=== PATIENT | male | born 1955 | race Caucasian/White ===

== ENCOUNTER → 2020-08-06 11:06 | Outpatient (CLI) | payer MEDICARE, SELFPAY ==
[2020-08-06] MEDS: COVID-19 VACC #1, MRNA(MOD) 100 MCG/0.5 ML VIAL IM (11:24)
== END ==
PROVIDERS: Visit Provider Internal Medicine
DX: Z23 Encounter for immunization (principal)
CPT/HCPCS: 0011A; 91301

== ENCOUNTER → 2020-09-03 11:10 | Outpatient (CLI) | payer MEDICARE, SELFPAY ==
[2020-09-03] MEDS: COVID-19 VACC #2, MRNA(MOD) 100 MCG/0.5 ML VIAL IM (11:18)
== END ==
PROVIDERS: Visit Provider Internal Medicine
DX: Z23 Encounter for immunization (principal)
CPT/HCPCS: 0012A; 91301

== ENCOUNTER 2023-01-25 14:26 | Emergency (ER) | payer MEDICARE, SELFPAY ==
[2023-01-25 14:31] VITALS: BP 117/75; PULSE 117; RESP 18; TEMP 36.8; O2SAT 99; BMI 21.2
[2023-01-25 15:11] LABS: Add Manual Diff / Slide Review NO; Basophils Absolute Auto 100 /uL (0-100); Basophils Percent Auto 1.5 % (0-2); Eosinophils Absolute Auto 100 /uL (0-450); Eosinophils Percent Auto 1.6 % (2-4); Hematocrit 39.2 % (41-53); Hemoglobin 13.1 g/dL (13.5-17.5); Lymphocytes Absolute Auto 3000 /uL (1100-4500); Lymphocytes Percent Auto 39.5 % (25-40); Mean Corpuscular HGB Conc 33.4 % (30-36); Mean Corpuscular Hemoglobin 28.8 PG (26-34); Mean Corpuscular Volume 86.4 fL (80-100); Monocytes Absolute Auto 400 /uL (0-900); Monocytes Percent Auto 5.6 % (3-14); Neutrophils Absolute Auto 3900 /uL (1500-7000); Neutrophils Percent Auto 51.8 % (50-75); Platelet Count 351 X10^3/uL (150-400); Red Blood Cell Count 4.54 X10^6/uL (4.5-5.9); Red Cell Distribution Width 16.3 % (11.6-14.8); White Blood Cell Count 7.5 X10^3/uL (4.5-11.0)
[2023-01-25 15:24] LABS: Alanine Aminotransferase 24 IU/L (<50); Albumin 4.5 g/dL (3.5-5.0); Albumin Globulin Ratio 1.3 (1.0-2.8); Alkaline Phosphatase 80 U/L (38-126); Aspartate Aminotransferase 33 IU/L (17-59); BUN Creatinine Ratio 16.7 (6-22); Bilirubin Total 0.3 mg/dL (0.2-1.3); Blood Urea Nitrogen 11 mg/dL (9-20); Calcium 9.6 mg/dL (8.4-10.2); Carbon Dioxide 23 mmol/L (22-32); Chloride 102 mmol/L (98-107); Estimated Glomerular Filt Rate > 60 mL/min (>60); Globulin 3.5 g/dL (1.7-4.1); Glucose 90 mg/dL (80-110); HEMOLYSIS < 15 (0-50); Lipase 128 U/L (23-300); Potassium 3.8 mmol/L (3.4-5.1); Sodium 138 mmol/L (137-145)
[2023-01-25 17:47] VITALS: BP 134/75; PULSE 99; O2SAT 99
[2023-01-25 19:09] VITALS: BP 161/95; PULSE 86; O2SAT 99
--- NOTE | 2023-01-25 20:13 | ED_ITS ---
HPI - Abdominal Pain General Chief Complaint: Abdominal Pain Stated Complaint: bad hernia Time Seen by Provider: 01/25/23 20:09 Source: patient Mode of arrival: Ambulatory History of Present Illness HPI narrative: Patient 67-year-old male with chronic ongoing back pain presents today with right inguinal groin pain. He reports that he is had a hernia possibly for the last 7 months however over last 4 days he is having increasing pain. Difficult bowel movement no nausea or vomiting no abdominal pain. No fever or chills. No painful frequent urination. Related Data Previous Rx's Medication Instructions Recorded hydrocodone 5 mg-acetaminophen 325 1 tab PO Q6H PRN pain #10 tabs 01/25/23 mg tablet Allergies Allergy/AdvReac Type Severity Reaction Status Date / Time codeine Allergy Cramping Verified 01/25/23 14:31 of the Muscles Review of Systems Review of Systems ROS Unobtainable: All systems reviewed & are unremarkable except as noted in HPI and below Patient History Social History Smoking Status: Current every day smoker Smoking Status: Current every day smoker tobacco type: cigarettes alcohol intake frequency: 3 or more drinks per day Substance Use Type: marijuana Exam Initial Vital Signs Initial Vital Signs: Vital Signs Temperature 98.3 F 01/25/23 14:31 Pulse Rate 117 H 01/25/23 14:31 Respiratory Rate 18 01/25/23 14:31 Blood Pressure 117/75 01/25/23 14:31 Pulse Oximetry 99 01/25/23 14:31 Oxygen Delivery Method Room Air 01/25/23 14:31 GENERAL: Alert pleasant 67-year-old male HEENT: Head atraumatic,EOMI, pupils reactive, face symmetric, [moist] mucous membranes CARDIOVASCULAR: Regular rate and rhythm without murmurs, rubs or gallops. RESPIRATORY: Breath sounds equal bilaterally, no wheezes rales or rhonchi. ABDOMEN: Soft, nontender. Normoactive bowel sounds all 4 quadrants. No guarding or rebound. : Large right inguinal hernia. Soft was able to reduce some. EXTREMITIES: Normal range of motion, no clubbing or edema. Neurovascularly intact NEUROLOGICAL: Alert and oriented x4. SKIN: Warm, dry, no laceration, no petechiae, no rashes or lesions. Course Orders Ordered: ED Orders 01/25/23 20:43 US scrotum Stat Discontinued Medications Hydrocodone Bitart/Acetaminophen (Hydrocodone/Acet 5/325 Prepack) 1 bottle MISC SEEINSTR ONE Stop: 01/25/23 22:48 Last Admin: 01/25/23 22:54 Dose: 1 bottle Documented By: ADRIANO Ketorolac Tromethamine (Ketorolac 30 Mg/Ml Vial) 15 mg IV NOW ONE Stop: 01/25/23 20:51 Last Admin: 01/25/23 21:01 Dose: 15 mg Documented By: ADRIANO Morphine Sulfate (Morphine 2 Mg/Ml Inj) 2 mg IV NOW ONE Stop: 01/25/23 20:20 Last Admin: 01/25/23 20:24 Dose: 2 mg Documented By: CAITIE Ondansetron HCl (Ondansetron 4 Mg Odt) 4 mg PO NOW PRN PRN Reason: Nausea And Vomiting Ondansetron HCl (Ondansetron 4 Mg/2 Ml Inj) 4 mg IV NOW PRN PRN Reason: Nausea And Vomiting Last Admin: 01/25/23 20:24 Dose: 4 mg Documented By: CAITIE Vital Signs Vital signs: Vital Signs - 8 hr 01/25/23 21:47 01/25/23 22:19 01/25/23 22:57 Temperature 97.7 F 98.1 F Pulse Rate 80 74 Respiratory Rate 16 16 16 Blood Pressure 144/88 H 155/81 H 164/93 H Pulse Oximetry 95 99 Oxygen Delivery Method Room Air Room Air Room Air MDM - Abdominal Pain Lab Data 01/25/23 14:45 01/25/23 14:45 Labs: Lab Results 01/25/23 01/25/23 Range/Units 14:45 14:45 WBC 7.5 (4.5-11.0) X10^3/uL RBC 4.54 (4.5-5.9) X10^6/uL Hgb 13.1 L (13.5-17.5) g/dL Hct 39.2 L (41-53) % MCV 86.4 (80-100) fL MCH 28.8 (26-34) PG MCHC 33.4 (30-36) % RDW 16.3 H (11.6-14.8) % Plt Count 351 (150-400) X10^3/uL Neut % (Auto) 51.8 (50-75) % Lymph % (Auto) 39.5 (25-40) % [place] % (Auto) 5.6 (3-14) % Eos % (Auto) 1.6 L (2-4) % Baso % (Auto) 1.5 (0-2) % Neut # (Auto) 3900 (0714-4666) /uL Lymph # (Auto) 3000 (0613-7223) /uL [place] # (Auto) 400 (0-900) /uL Eos # (Auto) 100 (0-450) /uL Baso # (Auto) 100 (0-100) /uL Sodium 138 (137-145) mmol/L Potassium 3.8 (3.4-5.1) mmol/L Chloride 102 (98-107) mmol/L Carbon Dioxide 23 (22-32) mmol/L BUN 11 (9-20) mg/dL Creatinine 0.66 (0.66-1.25) mg/dL Estimated GFR > 60 (>60) mL/min BUN/Creatinine Ratio 16.7 (6-22) Glucose 90 (80-110) mg/dL Calcium 9.6 (8.4-10.2) mg/dL Total Bilirubin 0.3 (0.2-1.3) mg/dL AST 33 (17-59) IU/L ALT 24 (<50) IU/L Alkaline Phosphatase 80 (38-126) U/L Total Protein 8.0 (6.3-8.2) g/dL Albumin 4.5 (3.5-5.0) g/dL Globulin 3.5 (1.7-4.1) g/dL Albumin/Globulin Ratio 1.3 (1.0-2.8) Lipase 128 (23-300) U/L Imaging Data US scrotum: Radiologist's Impression: PROCEDURE:? US SCROTUM ? INDICATIONS:? RIGHT SCROTAL HERNIA ? TECHNIQUE:? Real-time scanning was performed of the scrotum and testicles, with image documentation.? Color and pulse Doppler interrogation was performed of both testicles.? ? COMPARISON:? [facility], CT, CT ABDOMEN PELVIS WITH CONTRAST, 01/20/2023, 22:41. ? FINDINGS:? ? Right:? Testicle measures 2.7 x 1.4 x 4.3 cm and appears homogenous in echotexture.? Epididymis is normal in overall size and morphology.? No hydrocele or varicoceles.? Overlying scrotal skin is normal in thickness.? ? There is a large right inguinal hernia containing loops of small bowel redemonstrated.? This measures approximately 8.6 x 6.7 x 8.6 cm. ? Left:? Testicle measures 3.9 x 2.4 x 3.5 cm and appears homogeneous in echotexture.? Epididymis is normal in overall size and morphology.? No hydrocele or varicoceles.? Overlying scrotal skin is normal in thickness.? ? Doppler:? Color and pulse Doppler demonstrate patent arterial flow in both testicles.? ? IMPRESSION:? ? 1. Large bowel-containing right inguinal hernia redemonstrated as seen on the prior CT. ? 2. No evidence of testicular torsion. ? ? Dictated by: Liborio Swain M.D. on 01/25/2023 at 22:49 ? ? ECG Data Interpretation: Normal sinus rhythm rate 98 AK interval 144 QRS [address] changes no T- wave inversions MDM Narrative Medical decision making narrative: Patient 67-year-old male presents today with chronic ongoing right inguinal hernia. It is likely chronic but increasing pain over last couple of days. I was able to reduce it some however not completely. Ultrasound confirms no testicular torsion or other etiology. Discussed that patient will likely need definitive surgery for complete reduction. No evidence of incarceration today. Blood work has been reviewed and is reassuring without clinical significant abnormalities. Discharge Plan Departure Patient Disposition: Home Clinical Impression: Hernia, inguinal, right Instructions: Groin Hernia -- Adult Activity Restrictions/Additional Instructions: *You have been diagnosed with right inguinal hernia *What to do: At this time your hernia will likely come out any time you strain cough sneeze laugh etc. you will ultimately need surgery for repair. *Continue to take medications as directed [place] 1 tablet every 6 hours if needed for severe pain *Follow up with your primary care provider in 2-3 days or call [phone] Tomorrow call surgery to schedule follow-up appointment *Return to ER if you should have increasing pain, hardness, change in color, fever, change in bowel habits or any new, worsening or concerning symptoms CONTROLLED SUBSTANCE DISCHARGE (Narcotoic/benzodiazepine/Flexeril/Phenergan) 1. You have been prescribed narcotic medications, it does have acetaminop hen/Tylenol/paracetamol in it, DO NOT TAKE MORE THAN 4,00mg in 24 hours of Tylenol. TRAMADOL DOES NOT CONTAIN TYLENOL 2. Please understand that we cannot provide further refills of narcotics, chemo odiazepines or controlled substances through the ED and her pain management will need to be through your provider. 3. While on these medications you cannot drive or operate heavy machinery. 4. You cannot sign legal documents or perform any duties such as this. 5. As long as you're taking opiate pain medications he should also be taking a stool softener such as Colace, Dulcolax, MiraLAX or prune juice, to help avoid constipation. Prescriptions: New hydrocodone-acetaminophen 5-325 mg tablet 1 tab PO Q6H PRN (Reason: pain) Qty: 10 0RF Referrals: [facility] [Provider Group] Miscellaneous,[facility] [Primary Care Provider] - Stand Alone Forms: Patient Portal/API
[2023-01-25] MEDS: ONDANSETRON 4 MG/2 ML INJ IV (20:24)
[2023-01-25] MEDS: MORPHINE 2 MG/ML INJ IV (20:24)
--- NOTE | 2023-01-25 20:43 | DI.US.S_ITS ---
PROCEDURE: US SCROTUM INDICATIONS: RIGHT SCROTAL HERNIA TECHNIQUE: Real-time scanning was performed of the scrotum and testicles, with image documentation. Color and pulse Doppler interrogation was performed of both testicles. COMPARISON: [facility], CT, CT ABDOMEN PELVIS WITH CONTRAST, 01/20/2023, 22:41. FINDINGS: Right: Testicle measures 2.7 x 1.4 x 4.3 cm and appears homogenous in echotexture. Epididymis is normal in overall size and morphology. No hydrocele or varicoceles. Overlying scrotal skin is normal in thickness. There is a large right inguinal hernia containing loops of small bowel redemonstrated. This measures approximately 8.6 x 6.7 x 8.6 cm. Left: Testicle measures 3.9 x 2.4 x 3.5 cm and appears homogeneous in echotexture. Epididymis is normal in overall size and morphology. No hydrocele or varicoceles. Overlying scrotal skin is normal in thickness. Doppler: Color and pulse Doppler demonstrate patent arterial flow in both testicles. IMPRESSION: 1. Large bowel-containing right inguinal hernia redemonstrated as seen on the prior CT. 2. No evidence of testicular torsion. Dictated by: Liborio Swain M.D. on 01/25/2023 at 22:49 Approved by: Liborio Swain M.D. on 01/25/2023 at 22:52
[2023-01-25] MEDS: KETOROLAC 30 MG/ML VIAL 15 MG IV (21:01)
[2023-01-25 21:47] VITALS: BP 144/88; PULSE 80; RESP 16; TEMP 36.5; O2SAT 95
[2023-01-25 22:19] VITALS: BP 155/81; RESP 16; TEMP 36.7
[2023-01-25] MEDS: HYDROCODONE/ACET 5/325 PREPACK 1 BOTTLE MISC (22:54)
[2023-01-25 22:57] VITALS: BP 164/93; PULSE 74; RESP 16; O2SAT 99
== END 2023-01-25 23:05 | disposition home or self-care (01) ==
PROVIDERS: Emergency Medicine; Emergency Provider Emergency Medicine
DX: K40.90 Unilateral inguinal hernia, without obstruction or gangrene, not specified as recurrent (principal); R03.0 Elevated blood-pressure reading, without diagnosis of hypertension
CPT/HCPCS: 76870; 80053; 83690; 85025; 93005; 93010; 93975; 96374; 96375; 99283; 99284; J1885; J2270; J2405

== ENCOUNTER 2023-02-08 15:44 | Observation (INO) | payer MEDICARE, SELFPAY ==
[2023-02-08] VITALS (43 sets, daily range): BP systolic 139–226; BP diastolic 85–118; PULSE 61–86; RESP 18–31; TEMP 36.3–36.5; O2SAT 91–100; BMI 19.5
[2023-02-08] MEDS: ONDANSETRON 4 MG/2 ML INJ IV (16:03)
[2023-02-08] MEDS: HYDROMORPHONE 0.5 MG INJ IV ×3 (16:03→20:46)
[2023-02-08 16:27] LABS: Alanine Aminotransferase 25 IU/L (<50); Albumin 4.5 g/dL (3.5-5.0); Albumin Globulin Ratio 1.1 (1.0-2.8); Alkaline Phosphatase 101 U/L (38-126); Aspartate Aminotransferase 29 IU/L (17-59); BUN Creatinine Ratio 27.9 (6-22); Bilirubin Total 0.4 mg/dL (0.2-1.3); Blood Urea Nitrogen 17 mg/dL (9-20); Calcium 10.3 mg/dL (8.4-10.2); Carbon Dioxide 27 mmol/L (22-32); Chloride 101 mmol/L (98-107); Estimated Glomerular Filt Rate > 60 mL/min (>60); Glucose 114 mg/dL (80-110); HEMOLYSIS < 15 (0-50); Lipase 125 U/L (23-300); Sodium 137 mmol/L (137-145); Total Protein 8.5 g/dL (6.3-8.2)
[2023-02-08 16:37] LABS: Add Manual Diff / Slide Review NO; Basophils Absolute Auto 100 /uL (0-100); Basophils Percent Auto 1.7 % (0-2); Eosinophils Absolute Auto 100 /uL (0-450); Eosinophils Percent Auto 1.5 % (2-4); Hematocrit 38.8 % (41-53); Hemoglobin 12.8 g/dL (13.5-17.5); Lymphocytes Absolute Auto 1900 /uL (1100-4500); Lymphocytes Percent Auto 33.2 % (25-40); Mean Corpuscular HGB Conc 33.1 % (30-36); Mean Corpuscular Hemoglobin 28.7 PG (26-34); Mean Corpuscular Volume 86.8 fL (80-100); Monocytes Absolute Auto 200 /uL (0-900); Monocytes Percent Auto 4.3 % (3-14); Neutrophils Absolute Auto 3500 /uL (1500-7000); Neutrophils Percent Auto 59.3 % (50-75); Platelet Count 257 X10^3/uL (150-400); Red Blood Cell Count 4.46 X10^6/uL (4.5-5.9); Red Cell Distribution Width 16.3 % (11.6-14.8); White Blood Cell Count 5.8 X10^3/uL (4.5-11.0)
--- NOTE | 2023-02-08 16:57 | PC.NURSE ---
Pt's stoma began leaking liquid stool. Gave pt partial bed bath, changed gown & brief. Pt complained of tenderness around stoma. Stoma bright red and edemetous with surrounding skin red and irritated.
--- NOTE | 2023-02-08 17:10 | PC.NURSE ---
Repeated stoma care.
--- NOTE | 2023-02-08 17:17 | DI.US.S_ITS ---
PROCEDURE: US SCROTUM INDICATIONS: WORSENING RIGHT GROIN HERNIA. SCROTAL PAIN. EVAL BOTH. TECHNIQUE: Real-time scanning was performed of the scrotum and testicles, with image documentation. Color and pulse Doppler interrogation was performed of both testicles. COMPARISON: , , US SCROTUM, 01/25/2023, 21:10. FINDINGS: Right: Testicle is normal in size at 3.8 x 2.3 x 3.6 cm, and homogenous in echotexture. Epididymis is normal in overall size and morphology. Tiny right hydrocele. No varicocele. There is a large fluid and bowel containing inguinal hernia medially displacing the right testicle. Overlying scrotal skin is normal in thickness. Left: Testicle is normal in size at 2.8 x 2.3 x 2.8 cm, and homogeneous in echotexture. 6 mm cyst in the left epididymal head. Epididymis is otherwise normal in overall size and morphology. No hydrocele or varicoceles. Overlying scrotal skin is normal in thickness. Doppler: Color and pulse Doppler demonstrate normal and symmetric arterial flow in both testicles. IMPRESSION: 1. Known large right inguinal hernia containing both fluid and bowel. 2. Normal appearance to the testicles. Dictated by: Mariela Denton M.D. on 02/08/2023 at 18:51 Approved by: Mariela Denton M.D. on 02/08/2023 at 18:54
--- NOTE | 2023-02-08 17:21 | PC.NURSE ---
Dr. Feliz made aware of pt's pain, BP, and reason for being here. Verbal order for pain meds and an US
[2023-02-08] MEDS: HYDROMORPHONE 1 MG INJ IV (17:22)
[2023-02-08] MEDS: SODIUM CHLORIDE 0.9% 1,000 ML 1000 ML IV (19:00)
--- NOTE | 2023-02-08 19:03 | ED.GENADULT ---
HPI - General Adult General Chief complaint: Abdominal Pain Stated complaint: Hernia pain Time Seen by Provider: 02/08/23 18:08 Source: patient Mode of arrival: Ambulatory History of Present Illness HPI narrative: 67-year-old gentleman who is had almost no interaction with medical providers to date. 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 Thorough workup at that time including CT scan and blood work did not indicate any obvious abnormalities, his right inguinal hernia was not incarcerated and he was referred to outpatient follow-up. He was seen by Dr. Gonzales, and certainly is actually scheduled as an outpatient on the . He comes into [facility] today with increased pain in the inguinal hernia no bowel movement for 4-5 days and not passing gas for the last 24 hours. Pain is not able to be controlled at home. He reports no fevers, cough, chills. He has not had any additional weight loss. He is had no chest pain or palpitations and does not complain of dyspnea Related Data Previous Rx's Medication Instructions Recorded hydrocodone 5 mg-acetaminophen 325 1 tab PO Q6H PRN pain #10 tabs 01/25/23 mg tablet Allergies Allergy/AdvReac Type Severity Reaction Status Date / Time codeine Allergy Cramping Verified 02/08/23 15:50 of the Muscles Review of Systems Review of Systems Narrative: Pertinent positive and negative findings as per HPI Patient History Social History Smoking Status: Current every day smoker Smoking Status: Current every day smoker tobacco type: cigarettes alcohol intake frequency: holidays/special occasions only Substance Use Type: marijuana Exam Initial Vital Signs Initial Vital Signs: Vital Signs Temperature 97.4 F L 02/08/23 15:45 Pulse Rate 66 02/08/23 15:45 Respiratory Rate 22 02/08/23 15:45 Blood Pressure 210/108 H 02/08/23 15:45 Pulse Oximetry 100 02/08/23 15:45 Oxygen Delivery Method Room Air 02/08/23 15:45 General: Chronically ill thin gentleman in obvious pain from the hernia but Able to give a complete and coherent history. HEENT: Moist mucous membranes, normal sclera with reactive pupils, Neck: No JVD, supple Respiratory: Lungs are clear to auscultation, no wheezing no rales no rhonchi. Full and symmetrical air movement Cardiac: Regular rate and rhythm no murmurs no bruits Abdomen: Soft, scaphoid, no bowel tones, Groin, he has a large right inguinal hernia tender to the touch non reducible Skin: Thin, no lower extremity edema Neurologic: Grossly neurologically intact with no obvious asymmetries or abnormalities Extremities: No trauma, well perfused Psych: Cooperative, appropriate insight and affect Procedures Procedural Sedation Time of procedure: 19:43 Consent signed: Yes Time out performed: Yes Indication: other (Hernia reduction) ASA Class: II Mallampati Airway Classification: Class II Time of Last PO Intake: 08:00 Preparation: trap puller applied, pulse oximeter, capnometry used, supplemental O2 applied, suction/airway equipment at bedside and IV secured IV Propofol dose (mg): 60 Intraservice time/total sedation time (min): 10 ED Sedation Level: Moderate (Concious) Patient Tolerated Procedure: Well Complications: none Additional Comments: Right inguinal hernia was reduced at bedside by Dr. Da Silva, general surgeon Course Orders Ordered: ED Orders 02/08/23 15:59 EKG-12 Lead Stat 02/08/23 16:00 Comprehensive Metabolic Panel Stat Lipase Stat 02/08/23 16:01 Complete Blood Count AUTO DIFF Stat 02/08/23 17:17 US scrotum Stat Hydrocodone Bitart/Acetaminophen (Hydrocodone/Acet 5/325 Tablet) 1 tab PO Q4H PRN PRN Reason: Pain, Moderate (4-6) Hydrocodone Bitart/Acetaminophen (Hydrocodone/Acet 5/325 Tablet) 2 tab PO Q4H PRN PRN Reason: Pain, Severe (7-10) Hydromorphone HCl (Hydromorphone 0.5 Mg Inj) 0.5 mg IV Q15MIN PRN PRN Reason: Pain, Last Admin: 02/08/23 19:01 Dose: 0.5 mg Documented By: PHI Hydromorphone HCl (Hydromorphone 0.5 Mg Inj) 0.5 mg IV Q2H PRN PRN Reason: Pain, Severe (7-10) Lactated Ringer's (Lactated Ringers) 1,000 mls @ 100 mls/hr IV CONT MONTEZ Ibuprofen (Ibuprofen 600 Mg Tablet) 600 mg PO Q6H PRN PRN Reason: Fever/Mild Pain (1-3) Naloxone HCl (Naloxone 0.4 Mg/Ml Vial) 0.2 mg IV Q2MIN PRN PRN Reason: Opiate Reversal Ondansetron HCl (Ondansetron 4 Mg/2 Ml Inj) 4 mg IV NOW PRN PRN Reason: Nausea And Vomiting Last Admin: 02/08/23 16:03 Dose: 4 mg Documented By: CAITIE Ondansetron HCl (Ondansetron 4 Mg/2 Ml Inj) 4 mg IV Q8HR PRN PRN Reason: Nausea And Vomiting Discontinued Medications Hydromorphone HCl (Hydromorphone 0.5 Mg Inj) 0.5 mg IV NOW ONE Stop: 02/08/23 16:00 Last Admin: 02/08/23 16:03 Dose: 0.5 mg Documented By: CAITIE Hydromorphone HCl (Hydromorphone 1 Mg Inj) 1 mg IV NOW ONE Stop: 02/08/23 17:18 Last Admin: 02/08/23 17:22 Dose: 1 mg Documented By: PHI Sodium Chloride (Normal Saline 0.9%) 1,000 mls @ 1,000 mls/hr IV BOLUS ONE Stop: 02/08/23 19:52 Last Admin: 02/08/23 19:00 Dose: 1,000 mls/hr Documented By: PHI Ondansetron HCl (Ondansetron 4 Mg/2 Ml Inj) 4 mg IV NOW ONE Stop: 02/08/23 18:54 Last Admin: 02/08/23 20:13 Dose: Not Given Documented By: FORTINO Propofol (Propofol 200 Mg/20 Ml Vial) 200 mg IV NOW ONE Stop: 02/08/23 19:05 Last Admin: 02/08/23 19:45 Dose: 60 mg Documented By: FORTINO Vital Signs Vital signs: Vital Signs - 8 hr 02/08/23 15:45 02/08/23 16:37 02/08/23 16:45 Temperature 97.4 F L Pulse Rate 66 63 63 Respiratory Rate 22 Blood Pressure 210/108 H Pulse Oximetry 100 96 96 Oxygen Delivery Method Room Air Oxygen Flow Rate 02/08/23 17:00 02/08/23 17:25 02/08/23 17:25 Temperature Pulse Rate 64 64 Respiratory Rate Blood Pressure 194/93 H Pulse Oximetry 96 99 Oxygen Delivery Method Oxygen Flow Rate 02/08/23 17:30 02/08/23 17:45 02/08/23 18:18 Temperature Pulse Rate 71 83 77 Respiratory Rate Blood Pressure Pulse Oximetry 91 95 99 Oxygen Delivery Method Oxygen Flow Rate 02/08/23 18:30 02/08/23 18:45 02/08/23 19:00 Temperature Pulse Rate 71 71 67 Respiratory Rate Blood Pressure Pulse Oximetry 97 98 98 Oxygen Delivery Method Room Air Oxygen Flow Rate 02/08/23 19:03 02/08/23 19:03 02/08/23 19:15 Temperature Pulse Rate 68 71 Respiratory Rate Blood Pressure 204/111 H Pulse Oximetry 96 98 Oxygen Delivery Method Room Air Oxygen Flow Rate 02/08/23 19:40 02/08/23 19:40 02/08/23 16:40 Temperature Pulse Rate 71 62 Respiratory Rate 31 H Blood Pressure 226/118 H Pulse Oximetry 97 Oxygen Delivery Method Oxygen Flow Rate 02/08/23 16:50 02/08/23 16:55 02/08/23 17:05 Temperature Pulse Rate 63 61 63 Respiratory Rate Blood Pressure Pulse Oximetry 96 97 98 Oxygen Delivery Method Oxygen Flow Rate 02/08/23 17:35 02/08/23 17:40 02/08/23 17:50 Temperature Pulse Rate 70 72 77 Respiratory Rate Blood Pressure Pulse Oximetry 95 96 97 Oxygen Delivery Method Oxygen Flow Rate 02/08/23 17:55 02/08/23 18:20 02/08/23 18:25 Temperature Pulse Rate 72 68 70 Respiratory Rate Blood Pressure Pulse Oximetry 93 97 98 Oxygen Delivery Method Oxygen Flow Rate 02/08/23 18:35 02/08/23 18:40 02/08/23 18:50 Temperature Pulse Rate 73 69 76 Respiratory Rate Blood Pressure Pulse Oximetry 96 98 99 Oxygen Delivery Method Oxygen Flow Rate 02/08/23 18:55 02/08/23 19:05 02/08/23 19:20 Temperature Pulse Rate 70 73 85 Respiratory Rate Blood Pressure Pulse Oximetry 98 96 99 Oxygen Delivery Method Oxygen Flow Rate 02/08/23 19:25 02/08/23 19:45 02/08/23 19:47 Temperature Pulse Rate 67 86 84 Respiratory Rate 23 22 Blood Pressure Pulse Oximetry 98 93 99 Oxygen Delivery Method Nasal Cannula Oxygen Flow Rate 2 2 02/08/23 19:47 02/08/23 19:50 02/08/23 19:50 Temperature Pulse Rate 83 Respiratory Rate 20 Blood Pressure 186/106 H 177/104 H Pulse Oximetry 100 Oxygen Delivery Method Room Air Oxygen Flow Rate Medical Decision Making Lab Data 02/08/23 16:01 02/08/23 16:00 Labs: Lab Results 02/08/23 02/08/23 Range/Units 16:00 16:01 WBC 5.8 (4.5-11.0) X10^3/uL RBC 4.46 L (4.5-5.9) X10^6/uL Hgb 12.8 L (13.5-17.5) g/dL Hct 38.8 L (41-53) % MCV 86.8 (80-100) fL MCH 28.7 (26-34) PG MCHC 33.1 (30-36) % RDW 16.3 H (11.6-14.8) % Plt Count 257 (150-400) X10^3/uL Neut % (Auto) 59.3 (50-75) % Lymph % (Auto) 33.2 (25-40) % [place] % (Auto) 4.3 (3-14) % Eos % (Auto) 1.5 L (2-4) % Baso % (Auto) 1.7 (0-2) % Neut # (Auto) 3500 (6477-9850) /uL Lymph # (Auto) 1900 (2024-5510) /uL [place] # (Auto) 200 (0-900) /uL Eos # (Auto) 100 (0-450) /uL Baso # (Auto) 100 (0-100) /uL Sodium 137 (137-145) mmol/L Potassium 4.0 (3.4-5.1) mmol/L Chloride 101 (98-107) mmol/L Carbon Dioxide 27 (22-32) mmol/L BUN 17 (9-20) mg/dL Creatinine 0.61 L (0.66-1.25) mg/dL Estimated GFR > 60 (>60) mL/min BUN/Creatinine Ratio 27.9 H (6-22) Glucose 114 H (80-110) mg/dL Calcium 10.3 H (8.4-10.2) mg/dL Total Bilirubin 0.4 (0.2-1.3) mg/dL AST 29 (17-59) IU/L ALT 25 (<50) IU/L Alkaline Phosphatase 101 (38-126) U/L Total Protein 8.5 H (6.3-8.2) g/dL Albumin 4.5 (3.5-5.0) g/dL Globulin 4.0 (1.7-4.1) g/dL Albumin/Globulin Ratio 1.1 (1.0-2.8) Lipase 125 (23-300) U/L Urine Dip Bedside Urine Glucose Negative Bedside Urine Bilirubin - Negative Bedside Urine Ketone - Negative Urine Specific [place] 1.02 Bedside Urine Occult Blood - Negative Bedside Urine pH 6 Bedside Urine Protein - Negative Bedside Urine Urobilinogen - Negative Bedside Urine Nitrite - Negative Bedside Urine Leukocytes - Negative Esterase Point of care testing: Urine Dip Bedside Urine Glucose Negative Bedside Urine Bilirubin - Negative Bedside Urine Ketone - Negative Urine Specific [place] 1.02 Bedside Urine Occult Blood - Negative Bedside Urine pH 6 Bedside Urine Protein - Negative Bedside Urine Urobilinogen - Negative Bedside Urine Nitrite - Negative Bedside Urine Leukocytes - Negative Esterase MDM Narrative Medical decision making narrative: CC: Incarcerated right inguinal hernia Complicating co-morbidities: Minimal interaction with medical community until January 20 of this year. No primary care Data collected from: patient, Medical records reviewed: ER notes from January 20 [facility] are reviewed, surgery notes from [facility] in anticipation of hernia surgery for February 11 2 reviewed Differential considered: Incarcerated hernia, gangrenous bowel, bowel obstruction secondary to both Exam documented above, pertinent findings include: Severe pain with tense right inguinal hernia. Quite thin, hypoactive to completely absent bowel tones Lab Test results independently reviewed as above. Pertinent findings: White blood cell count is unremarkable, mild anemia at 12.8 and 38.8 Chemistries show normal renal function. Remainder of chemistries are relatively unremarkable Consultations:7pm Dr. Da Silva, general surgery. He will evaluate the patient in the emergency department. We will try conscious sedation with propofol to see if we can reduce it in the department. Treatments: Sedation with reduction of hernia at bedside. Dilaudid for pain control Re-evaluations: Post sedation patient is doing well. Agrees to hospitalization tonight with surgical repair of his hernia tomorrow. Discussion: 67-year-old gentleman was not seen a doctor until January 20 of this year. He has a right inguinal hernia was incarcerated without gangrene reduced at bedside with conscious sedation. Still significantly tender. He is admitted for surgical repair. Additional problems include 25 lb weight loss that may actually be related to the pain from his hernia, symptoms started earlier in the summer and he was fishing on a boat in [place] and unable to access care that time. Patient is admitted to general surgery service. Will let providers at [facility] no that he will not be having surgery this Tuesday. Questions are answered and he is safe for transfer to the floor Discharge Plan Departure Patient Disposition: Admitted as Observation Clinical Impression: Hernia, inguinal, right Admit Date/Time: 02/08/23 19:54 Admit Provider: Jose Da Silva
--- NOTE | 2023-02-08 19:28 | P.HP_ITS ---
History of Present Illness History of Present Illness Date Patient Seen: 02/08/23 Time Patient Seen: 19:28 Chief complaint: Hernia pain Narrative: Jose is a 67 year old man with a large right inguinal hernia. He was seen here earlier this month and the hernia was reduced but it popped out again by the following morning. He is scheduled to have it repaired this Tuesday at [facility]. Today the pain became much worse and he stopped passing gas. He last ate this m orning. [facility] Social History Smoking Status: Current every day smoker Meds Home Medications and Allergies Home Medications Medication Instructions Recorded Confirmed Type hydrocodone 5 mg-acetaminophen 325 1 tab PO Q6H PRN pain #10 tabs 01/25/23 Rx mg tablet Allergies Allergy/AdvReac Type Severity Reaction Status Date / Time codeine Allergy Cramping Verified 02/08/23 15:50 of the Muscles Exam Vital Signs (past 8 hours): - 02/08/23 15:45 02/08/23 16:37 02/08/23 16:45 Temperature 97.4 F L Pulse Rate 66 63 63 Respiratory Rate 22 Blood Pressure 210/108 H Pulse Oximetry 100 96 96 Oxygen Delivery Method Room Air 02/08/23 17:00 02/08/23 17:25 02/08/23 17:25 Temperature Pulse Rate 64 64 Respiratory Rate Blood Pressure 194/93 H Pulse Oximetry 96 99 Oxygen Delivery Method 02/08/23 17:30 02/08/23 17:45 Temperature Pulse Rate 71 83 Respiratory Rate Blood Pressure Pulse Oximetry 91 95 Oxygen Delivery Method Oxygen Delivery Method Room Air Narrative Exam Narrative: Large right inguinal hernia - not reducible Objective Labs 02/08/23 16:01 02/08/23 16:00 Labs: Laboratory Results - last 24 hr 02/08/23 02/08/23 16:00 16:01 WBC 5.8 RBC 4.46 L Hgb 12.8 L Hct 38.8 L MCV 86.8 MCH 28.7 MCHC 33.1 RDW 16.3 H Plt Count 257 Neut % (Auto) 59.3 Lymph % (Auto) 33.2 [place] % (Auto) 4.3 Eos % (Auto) 1.5 L Baso % (Auto) 1.7 Neut # (Auto) 3500 Lymph # (Auto) 1900 [place] # (Auto) 200 Eos # (Auto) 100 Baso # (Auto) 100 Sodium 137 Potassium 4.0 Chloride 101 Carbon Dioxide 27 BUN 17 Creatinine 0.61 L Estimated GFR > 60 BUN/Creatinine Ratio 27.9 H Glucose 114 H Calcium 10.3 H Total Bilirubin 0.4 AST 29 ALT 25 Alkaline Phosphatase 101 Total Protein 8.5 H Albumin 4.5 Globulin 4.0 Albumin/Globulin Ratio 1.1 Lipase 125 Assessment & Plan Assessment and plan (1) Hernia, inguinal, right: Status: Acute Plan Jose is a 67 year old man with a large right inguinal hernia. Sedation was administered by Dr. Fuller in the ER and I was able to completely reduce the hernia. He will be admitted and made NPO after midnight for an open right inguinal hernia repair with mesh tomorrow by Dr. Chan.
[2023-02-08] MEDS: propofoL 200 MG/20 ML VIAL IV (19:45)
[2023-02-08] MEDS: LACTATED RINGERS 1,000 ML 100 ML IV (22:53)
[2023-02-09] VITALS (18 sets, daily range): BP systolic 110–190; BP diastolic 70–107; PULSE 60–84; RESP 10–24; TEMP 36.1–36.9; O2SAT 95–99; BMI 19.5
--- NOTE | 2023-02-09 08:22 | PC.NURSE ---
@5723 pt left floor or surgery.
--- NOTE | 2023-02-09 09:01 | PM.PREOP ---
Pre-operative Note Interval Note History & Physical reviewed/Exam performed by Physician: Yes Changes to H&P: No H&P completed within 30 days and has changed as indicated here:: 67M with a large symptomatic right inguinal hernia. Plan is open right inguinal hernia with mesh. Overview of the procedure was discussed. Operative risks including bleeding, infection, hernia reoccurrence, chronic pain, testicular injury discussed. He provides his written and verbal consent to proceed.
[2023-02-09] MEDS: LACTATED RINGERS 1,000 ML 100 ML IV ×3 (09:04→22:30)
[2023-02-09] MEDS: CEFAZOLIN 2 GM/100 ML PREMIX 100 ML IV (09:45)
--- NOTE | 2023-02-09 10:00 | SUR.OPER ---
Supine on padded OR bed, head on pillow, arms secured on padded arm boards at <90 degrees abduction, legs uncrossed, safety belt at thigh, tape over blanket over lower legs.
[2023-02-09] MEDS: BUPIVACAINE 0.25% (PF) VIAL 30 ML INJ (10:08)
--- NOTE | 2023-02-09 10:25 | CM.DANOTE ---
DCP: Case received, EMR reviewed. Patient is currently in surgery, but was able to complete DCP assessment based upon information currently available. Patient is a 67 year old male who admitted yesterday evening to the care of the hospitalist team. PCP: None Payer: confirmed: Medicare. Patient came to the hospital via private vehicle secondary to having increased pain in the inguial hernia. Notes indicate that patient had been to [facility] on Jan 20, Dr. Gonzales had seen him, was scheduled for surgery as outpatient on Tuesday. He came to the ER secondary to having increased pain. Patient had recently been in [place] on a fishing boat. Notes also indicate that patient has had almost no interaction with medical providers to date. Was going to meet with patient, but is in surgery. Records note that patient resides in [place] with spouse, is likely independent at baseline. Has no current provider, not listed as well. May need to give resources regarding getting established with a provider. [facility] does have new providers on board that can accept. P: DCP to continue to follow. Most likely will go home when stable, can give resources for new providers upon discharge. Kelli Euceda RN/Supervisor [employer] Discharge Planning/Care Management CM Discharge Assessment Start: 02/09/23 10:20 Freq: Status: Active Protocol: Document 02/09/23 10:20 (Rec: 02/09/23 10:25 [id number]) Discharge Planning Assessment Assigned [employer] Tender Kelli Euceda RN/Supervisor [employer] Advance Directives? No History Provided By Patient,Medical Record Prior Living Arrangements House Household Members spouse Type of transporation used prior to Drives own vehicle admit Independent with ADL's Yes Is patient alert and oriented? Yes Caregiver for Another No Barriers to Discharge No Discharge Plan Home Referrals Initiated None needed Whiteboard Updated in Patient Room with Yes name and ext. # of Waterproof Co[employer] Machine Tender Review Status In Process Next Review Type Continued Stay Review
--- NOTE | 2023-02-09 11:06 | PM.OP.1 ---
Operative Date/Time/Diagnoses Date of procedure: 02/09/23 Time of procedure: 11:06 Pre-op diagnosis: Incarcerated right inguinal hernia Post-op diagnosis: same Procedure & Clinicians Procedure: Open repair of right inguinal Same procedure as scheduled: Yes Indications: 67 old male who presented with incarcerated right taken to the operating room for a right inguinal hernia repair Surgeon: Ray Chan Social Media Campaign Manager: Osvaldo Au Anesthesia Type: General Operative Notes Findings: Right- Large reducible indirect hernia Specimen(s): none sent Estimated Blood Loss (mL): 20 Procedure in detail: The patient was placed supine on the table and bilateral lower extremity compression devices were applied. Anesthesia was induced they were intubated with an LMA and received Ancef. A time-out was performed. They were prepped and draped in sterile fashion. The right external inguinal ring and the anterior superior iliac crest were identified and marked. 1 finger breath above the inguinal ligament the skin was infiltrated with 0.25% bupivacaine. The skin incision was made, the subcutaneous tissues were divided with electrocautery exposing the external oblique aponeurosis which was then opened along the direction of its fibers. Using blunt dissection the internal oblique aporneurosis was from the external oblique upper leaflet. The cord was carefully dissected away from the inguinal canal adjacent to the pubic tubercle. The cord including the vas deferens, testicular bloody supply, ilioguinal and genital nerve were encircled with a Ajay drain. No direct floor defect was identified. The cremasteric fibers surrounding the cord were divided adjacent to the internal ring. The vas deferens and the testicular vessels were preserved and protected. The cord contents were carefully explored. There was large indirect hernia on the anterior medial aspect of the cord which was skeletonized away from the vas deferens and testicular blood supply. The indirect hernia was skeletonized back to the internal ring and reduced spontaneously into the abdomen. A 7x 15 cm lightweight Bard Pro Loop hernia mesh was anchored to the insertion of the rectus muscle at the pubic tubercle such that there was approximately 2 cm of tubercle overlap with Ethibond. The inferior edge of the mesh was secured to the shelving edge of the inguinal ligament using Ethibond. Interrupted 3 0 Vicryl suture was used to anchor the superior aspect of the mesh to the conjoined tendon in several places. The tails were then reapproximated loosely around the spermatic cord. The tails of the mesh were then tucked under the external oblique aponeurosis. The repair was checked for hemostasis. The wound was irrigated with sterile saline. The external oblique aponeurosis was reapproximated in a running fashion using 3 0 Vicryl. The subcutaneous tissues were reapproximated with 3 0 Vicryl skin closed with 4 0 Monocryl followed by the application of Dermabond. At the end of the operation I ensured that both testicles were within the scrotum. The sponge instrument count at the end operation was correct. The patient emerged from anesthesia was extubated and transferred to the postoperative care unit in stable condition. A total of 30 ml of of 0.25% bupivicaine was used to infiltrate the skin. Complications: none Post-operative Condition: stable Disposition: same day surgery
[2023-02-09] MEDS: OXYCODONE/ACETAMINOPHEN 5/325 TABLET 1 TAB PO (11:43)
[2023-02-09] MEDS: LABETALOL 20 MG/4 ML SYRINGE 10 MG IV (11:46)
[2023-02-09] MEDS: HYDROCODONE/ACET 5/325 TABLET 2 TAB PO (12:39)
[2023-02-09] MEDS: ONDANSETRON 4 MG/2 ML INJ IV (12:43)
[2023-02-09] MEDS: IBUPROFEN 600 MG TABLET PO (14:19)
[2023-02-09] MEDS: HYDROCODONE/ACET 5/325 TABLET 1 TAB PO (18:36)
--- NOTE | 2023-02-09 22:03 | PC.NURSE ---
assumed care at 2150 from Brittani pollard.
[2023-02-10 07:00] VITALS: BP 148/95; PULSE 94; RESP 20; TEMP 36.9; O2SAT 97
[2023-02-10] MEDS: HYDROCODONE/ACET 5/325 TABLET 2 TAB PO (07:59)
[2023-02-10] MEDS: LACTATED RINGERS 1,000 ML 100 ML IV (08:44)
--- NOTE | 2023-02-10 09:42 | PC.NURSE ---
Pt is dressed and ready for discharge home with Spouse. IV has been removed. Went over d/c instructions-discussed d/c meds (he already has his prescriptions at home) -reminded Pt that he must not drive while he is on narcotics and until cleared by Dr. Chan on his follow up. Reminded Pt not to lift no greater than 20 pounds. He may shower (wound is glued), no submerging wound into bath or spa, reviewed s/s of stroke, and of infection. Pt to follow up as scheduled. Pt denied further questions and was taken out via w/c by RN to POV with Spouse and all belongings.
--- NOTE | 2023-02-10 10:41 | CM.DPC ---
DCP Discharge Home SW spoke to Surgeon and he confirms that pt was having some urinary retention yesterday and rabago cath placed and pt medically stable to d/c home today with rabago cath and outpt f/u with [facility] in a week and no further identified barriers to discharge. Per Rn, instructions provided and pwk and pt's spouse provided transport home this morning. ASHLEY Rodas
== END 2023-02-10 09:46 | disposition home or self-care (01) ==
LOC: ED 18:08 → AC 19:56
PROVIDERS: Emergency Medicine; Surgery; Admitting Provider Surgery; Emergency Provider Emergency Medicine; Referring Provider Surgery; Visit Provider Surgery
PROC: (CPT 49505; principal; 2023-02-09 09:15)
DX: K40.90 Unilateral inguinal hernia, without obstruction or gangrene, not specified as recurrent (principal)
CPT/HCPCS: 49505; 36415; 76870; 80053; 81003; 83690; 85025; 93005; 96361; 96374; 96375; 96376; 99152; 99221; 99285; G0378; J0690; J1170; J2405; J2704; J3010

== ENCOUNTER → 2023-05-24 16:44 | Outpatient (CLI) | payer MEDICARE, SELFPAY ==
[2023-02-08 22:55] VITALS: BMI 19.5
--- NOTE | 2023-05-24 16:47 | DI.RAD.S_ITS ---
PROCEDURE: XR HIP W PEL IF DONE LT 2V INDICATIONS: Left hip pain TECHNIQUE: 2 views of the hip were acquired. COMPARISON: [facility], CT, CT ABDOMEN PELVIS WITH CONTRAST, 01/20/2023, 22:41. FINDINGS: Bones: No fractures or dislocations. The visualized pelvic ring appears intact. Diffusely patchy marrow with subtle lytic lucencies, not seen on prior CT. Soft tissues: No suspicious soft tissue calcifications or masses. IMPRESSION: 1. No acute osseous abnormality. If there is high clinical suspicion for a radiographically occult fracture, consider CT or MRI for further evaluation. 2. Diffusely patchy marrow with subtle lytic lucencies, not appreciated on prior CT, accounting for differences in modality. Differential includes osteopenia/osteoporosis; however, cannot exclude a diffuse permeative abnormality such as a bone marrow malignancy. Consider correlation with blood tests and a DEXA scan for further evaluation. Dictated by: Lynn Funk M.D. on 05/25/2023 at 16:24 Approved by: Lynn Funk M.D. on 05/25/2023 at 16:59
== END ==
PROVIDERS: Referring Provider Nurse Practitioner Family; Visit Provider Nurse Practitioner Family
DX: M25.552 Pain in left hip (principal)
CPT/HCPCS: 73502

== ENCOUNTER → 2023-06-01 15:23 | Outpatient (CLI) | payer MEDICARE, SELFPAY ==
[2023-05-26 13:47] VITALS: BMI 19.5
--- NOTE | 2023-06-01 15:24 | DI.RAD.S_ITS ---
PROCEDURE: XR THORACIC SPINE 2V INDICATIONS: Assess for vertebral compression fractures and lytic lesions TECHNIQUE: 2 views of the thoracic spine were acquired. COMPARISON: None. FINDINGS: Bones: Diffuse demineralization and motion artifact limits the quality of this exam. There is focal kyphosis in the thoracolumbar region secondary to several moderate to severe compression fractures. These are seen from approximately T7 through L1. There is either lytic lesion or surgical resection of the posterior right 5th rib arc. Soft tissues: No paravertebral stripe thickening. IMPRESSION: 1. Multiple thoracolumbar compression fractures suboptimally evaluated due to osteopenia and motion artifact. Cross-sectional imaging is recommended for further detail. 2. Either right 5th rib resection or destructive lytic lesion. Correlate clinically. Dictated by: Mariela Denton M.D. on 06/01/2023 at 18:10 Approved by: Mariela Denton M.D. on 06/01/2023 at 18:15
--- NOTE | 2023-06-01 15:24 | DI.RAD.S_ITS ---
PROCEDURE: XR LUMBAR SPINE 2-3V INDICATIONS: Assess for vertebral compression fractures and lytic lesions TECHNIQUE: 3 views of the lumbar spine were acquired. COMPARISON: None. FINDINGS: Bones: 5 [id number] vertebrae are present. There is osteoporosis. Grade 1 anterolisthesis L5-S1 with mild disc height loss. Probable pars defects at this level. There is multilevel superior endplate scalloping at L4 and L5. Anterior wedge deformity at L2 and L1. There are a severe anterior wedge compression fractures in the visible lower thoracic spine.. No suspicious bony lesions. Soft tissues: Overlying bowel gas pattern is normal. No suspicious soft tissue calcifications. IMPRESSION: 1. Anterior wedging and superior endplate compression fractures may be posttraumatic and/or osteoporotic. 2. No definite lytic lesions although the bones are diffusely demineralized and these would not be well seen. Dictated by: Mariela Denton M.D. on 06/01/2023 at 18:16 Approved by: Mariela Denton M.D. on 06/01/2023 at 18:18
[2023-06-01 16:12] LABS: Add Manual Diff / Slide Review NO; Basophils Absolute Auto 0 /uL (0-100); Basophils Percent Auto 0.5 % (0-2); Eosinophils Absolute Auto 200 /uL (0-450); Eosinophils Percent Auto 4.3 % (2-4); Hematocrit 35.1 % (41-53); Hemoglobin 11.8 g/dL (13.5-17.5); Lymphocytes Absolute Auto 2200 /uL (1100-4500); Lymphocytes Percent Auto 39.5 % (25-40); Mean Corpuscular HGB Conc 33.6 % (30-36); Mean Corpuscular Hemoglobin 29.2 PG (26-34); Mean Corpuscular Volume 87.1 fL (80-100); Monocytes Absolute Auto 300 /uL (0-900); Monocytes Percent Auto 5.7 % (3-14); Neutrophils Absolute Auto 2800 /uL (1500-7000); Platelet Count 312 X10^3/uL (150-400); Red Blood Cell Count 4.03 X10^6/uL (4.5-5.9); Red Cell Distribution Width 15.4 % (11.6-14.8); White Blood Cell Count 5.5 X10^3/uL (4.5-11.0)
[2023-06-01 16:30] LABS: Alanine Aminotransferase 22 IU/L (<50); Albumin 4.5 g/dL (3.5-5.0); Alkaline Phosphatase 128 U/L (38-126); Aspartate Aminotransferase 46 IU/L (17-59); BUN Creatinine Ratio 20.3 (6-22); Bilirubin Total 0.5 mg/dL (0.2-1.3); Blood Urea Nitrogen 16 mg/dL (9-20); Calcium 11.1 mg/dL (8.4-10.2); Carbon Dioxide 32 mmol/L (22-32); Chloride 99 mmol/L (98-107); Estimated Glomerular Filt Rate > 60 mL/min (>60); Globulin 4.7 g/dL (1.7-4.1); Glucose 81 mg/dL (80-110); HEMOLYSIS < 15 (0-50); Potassium 3.1 mmol/L (3.4-5.1); Sodium 143 mmol/L (137-145); Total Protein 9.2 g/dL (6.3-8.2)
[2023-06-01 17:01] LABS: Prostate Specific Antigen 1.38 ng/mL (0.10-4.00)
[2023-06-01 17:46] LABS: Appearance Urine UA CLEAR; Bilirubin Urine UA NEGATIVE (NEGATIVE); Color Urine UA YELLOW; Glucose Urine UA NEGATIVE (Negative); Ketones Urine UA NEGATIVE (NEGATIVE); Leukocyte Esterase Urine UA NEGATIVE (NEGATIVE); Nitrite Urine UA NEGATIVE (Negative); Occult Blood Urine UA NEGATIVE (Negative); Protein Urine UA NEGATIVE (Negative); Specific Gravity Urine UA 1.025 (1.000-1.035); Urobilinogen Urine UA 0.2 E.U./dL (0.2)
[2023-06-01 17:54] LABS: Bacteria Urine None Seen; Culture Indicated Urine Cult Not Indicated; RBC Urine 0-1/HPF (0-5/HPF); Squamous Epithelial Cell Urine 0-1 /HPF (0-5/HPF); WBC Urine None Seen (0-5/HPF)
[2023-06-02 19:41] LABS: Free Kappa Lt Chains, Serum 11.7 mg/L (3.3-19.4); Free Lambda Lt Chains,Serum 1472.8 mg/L (5.7-26.3)
[2023-06-03 14:16] LABS: Albumin 3.6 g/dL (2.9-4.4); Alpha-1-Globulin 0.3 g/dL (0.0-0.4); Alpha-2-Globulin 1.1 g/dL (0.4-1.0); Gamma Globulin 2.1 g/dL (0.4-1.8); Globulin Total 4.5 g/dL (2.2-3.9); Immunoglobulin A, Serum 103 mg/dL (61-437); Immunoglobulin G,Serum 2212 mg/dL (603-1613); Immunoglobulin M, Serum 48 mg/dL (20-172); Protein, Total 8.1 g/dL (6.0-8.5)
[2023-06-04 13:36] LABS: QuantiFERON Mitogen Value >10.00 IU/mL (.); QuantiFERON TB Gold Plus Negative (Negative)
== END ==
PROVIDERS: PCP Family Medicine; Referring Provider Family Medicine; Visit Provider Family Medicine
DX: M48.55XA Collapsed vertebra, not elsewhere classified, thoracolumbar region, initial encounter for fracture (principal); M81.0 Age-related osteoporosis without current pathological fracture; M48.56XA Collapsed vertebra, not elsewhere classified, lumbar region, initial encounter for fracture; M89.8X9 Other specified disorders of bone, unspecified site; M89.9 Disorder of bone, unspecified; R63.4 Abnormal weight loss
CPT/HCPCS: 36415; 72070; 72100; 80053; 81001; 82784; 83883; 84153; 84155; 84165; 85025; 86334; 86480

== ENCOUNTER 2023-07-12 17:11 | Emergency (ER) | payer MEDICARE, SELFPAY ==
[2023-05-26 13:47] VITALS: BMI 19.5
[2023-07-12] VITALS (14 sets, daily range): BP systolic 156–186; BP diastolic 88–115; PULSE 62–104; RESP 12–22; TEMP 36.6; O2SAT 93–96; BMI 17.3
--- NOTE | 2023-07-12 17:19 | DI.CT.S_ITS ---
PROCEDURE: CT HEAD/BRAIN WO/W CON INDICATIONS: 03/01 headache, multiple myeloma mets to brain TECHNIQUE: 4.5 mm thick angled axial sections acquired from the foramen magnum to the vertex both before and after the administration of intravenous contrast, with coronal and sagittal reformats. For radiation dose reduction, the following was used: automated exposure control, adjustment of mA and/or kV according to patient size. COMPARISON: None. FINDINGS: Image quality: Excellent. CSF spaces: Basal cisterns are patent. No extra-axial fluid collections. Ventricles are symmetric in size and shape. Brain: No midline shift. No intracranial bleeds or masses. No abnormal intracranial enhancement. There is cerebral volume loss for age. There is periventricular white matter chronic small vessel ischemic change. There is intracranial internal carotid artery atherosclerosis. Skull and face: Multiple punched-out lesions can be seen involving the calvarium, which are consistent with the given clinical history of multiple myeloma. There is enhancing soft tissue seen associated with a left calvarial lesion, as on series 3, image 19. Sinuses: Visualized sinuses and mastoids are clear. IMPRESSION: Multiple calvarial foci of multiple myeloma can be seen. No findings of intracranial metastases are seen. Dictated by: Neil Mims M.D. on 07/12/2023 at 17:03 Approved by: Neil Mims M.D. on 07/12/2023 at 17:05
--- NOTE | 2023-07-12 19:19 | ED_ITS ---
HPI - Headache <Og Yun MD - Last Filed: 07/12/23 23:29> General Chief Complaint: Headache Stated Complaint: headache Time Seen by Provider: 07/12/23 19:19 History of Present Illness HPI Narrative: Gentleman with a recent diagnosis of multiple myeloma just a couple of months ago. He is awaiting his 1st consultative appointment with oncology at [facility] next week. He has been having severe neck pain and severe headaches over the past weeks. Today at lunch at around 4:00 a.m. he had another severe exacerbation of headache that was not related to trauma. No vomiting no fever. His qhshqdr-ie-xxy is with him and says that when his pain is so severe he is arched over and holding his head in a certain position and it is sometimes difficult to understand his speech. He walks with a cane in a very kyphotic posture baseline. Zkgdydw-sr-evx says he is commonly up crying out during the night waking every 1 up in the house because of severe headache and this has been the case for some time now. The patient says that the headache today was worse but can not really articulate in what way. It is much better than it was now when I am talking to him. Additional history from cawgbk-ah-hne is that he has been wasting away quite a bit over the past months. Patient says he is gained back about 20 lb since April and his sister says that is from the fact they have been feeding him. Over the past weeks he has had ever increasing severe neck pain that is quite debilitating. The etiology of the headaches has not been ascertained. He has his 1st oncology visit 2 weeks from now. Had lots of immuno chemistry tests done along with a bone marrow biopsy but later unaware of any of the results from that there is no cancer treatment plan as of yet. Related Data Previous Rx's Medication Instructions Recorded acetaminophen 325 mg capsule 650 mg (2 x 325 mg) PO QID PRN 02/09/23 (Tylenol) pain #60 caps docusate sodium 100 mg capsule 100 mg PO BID #30 caps 02/09/23 (Colace) ibuprofen 200 mg tablet 400 mg (2 x 200 mg) PO Q6H #60 tabs 02/09/23 cyclobenzaprine 10 mg tablet 10 mg PO TID #60 tabs 05/27/23 nicotine (polacrilex) 2 mg buccal 2 mg buccal Q6H PRN nicotine 05/27/23 lozenge cravings #72 ea varenicline 0.5 mg (11)-1 mg (42) 0.5 ea PO DIRECTED #53 ea 06/14/23 tablets in a dose pack hydrocodone 10 mg-acetaminophen 1 tab PO Q8H #30 tabs 06/30/23 325 mg tablet Allergies Allergy/AdvReac Type Severity Reaction Status Date / Time codeine Allergy stomach Verified 06/10/23 16:21 cramp Patient History <Og Yun MD - Last Filed: 07/12/23 23:29> Medical History (Updated 07/13/23 @ 02:46 by Og Yun MD) Lambda light chain myeloma Elevated serum protein level Vertebral compression fracture Bone pain Tobacco use Loss of height Weight loss Lytic bone lesions on xray Social History household members: spouse Smoking Status: Former smoker Smoking Status: Former smoker tobacco type: cigarettes alcohol intake frequency: a few times a week Substance Use Type: marijuana Exam <Og Yun MD - Last Filed: 07/12/23 23:29> Narrative Exam Narrative: GENERAL: Alert, cooperative and in no distress. Generalized wasting HEAD: Atraumatic. Normocephalic. EYES: Sclera are clear without icterus. Extraocular movements are full. ENT: No rhinorrhea. Oropharynx is moist. Mouth exam is benign. NECK: Very stiff. Almost completely locked in position. He can barely bend to the side or flex forward or backward. Ltwebhq-ps-grf says that this seems chronic to him CARDIOVASCULAR: Normal rate and rhythm without murmur gallop or rub. RESPIRATORY: Clear to auscultation. Breath sounds equal bilaterally. No wheezes, rales, or rhonchi. GASTROINTESTINAL: Abdomen soft, non-tender, nondistended. EXTREMITIES: No edema, full range of motion. No obvious trauma. Severe wasting BACK: Upper back is kyphotic. NEURO: Nonfocal examination, normal speech SKIN: No rash or erythema of visible areas PSYCH: Normally oriented. Normal range of affect. Appropriate behavior Initial Vital Signs Initial Vital Signs: Vital Signs Temperature 97.8 F 07/12/23 17:15 Pulse Rate 104 H 07/12/23 17:15 Respiratory Rate 16 07/12/23 17:15 Blood Pressure 171/110 H 07/12/23 17:15 Pulse Oximetry 94 07/12/23 17:15 Oxygen Delivery Method Room Air 07/12/23 17:15 <Nika Feliz DO - Last Filed: 07/13/23 18:19> Initial Vital Signs Initial Vital Signs: Vital Signs Temperature 97.8 F 07/12/23 17:15 Pulse Rate 104 H 07/12/23 17:15 Respiratory Rate 16 07/12/23 17:15 Blood Pressure 171/110 H 07/12/23 17:15 Pulse Oximetry 94 07/12/23 17:15 Oxygen Delivery Method Room Air 07/12/23 17:15 Course <Og Yun MD - Last Filed: 07/12/23 23:29> Orders Ordered: Discontinued Medications Acetaminophen (Acetaminophen 325 Mg Tablet) 975 mg PO NOW ONE Stop: 07/12/23 21:57 Last Admin: 07/12/23 22:08 Dose: 975 mg Documented By: HE Acetaminophen (Acetaminophen 325 Mg Tablet) 975 mg PO Q6H MONTEZ Last Admin: 07/13/23 17:17 Dose: Not Given Documented By: Admin: 07/13/23 11:31 Dose: 975 mg Documented By: Admin: 07/13/23 06:42 Dose: 975 mg Documented By: Admin: 07/12/23 23:46 Dose: Not Given Documented By: HE Dexamethasone (Dexamethasone 10 Mg/Ml Vial) 8 mg IV NOW ONE Stop: 07/12/23 23:28 Last Admin: 07/12/23 23:55 Dose: 8 mg Documented By: HE Hydromorphone HCl (Hydromorphone 1 Mg Inj) 1 mg IV NOW ONE Stop: 07/12/23 21:57 Last Admin: 07/12/23 22:05 Dose: 1 mg Documented By: HE Sodium Chloride (Normal Saline 0.9%) 1,000 mls @ 1,000 mls/hr IV BOLUS ONE Stop: 07/12/23 22:57 Last Infusion: 07/12/23 23:45 Dose: Infused Documented By: Admin: 07/12/23 22:16 Dose: 1,000 mls/hr Documented By: HE Metoclopramide HCl (Metoclopramide 10 Mg/2 Ml Inj) 10 mg IV NOW ONE Stop: 07/12/23 21:57 Last Admin: 07/12/23 22:08 Dose: 10 mg Documented By: HE Morphine Sulfate (Morphine 2 Mg/Ml Inj) 2 mg IV NOW ONE Stop: 07/13/23 14:18 Last Admin: 07/13/23 14:22 Dose: 2 mg Documented By: ISAURA Oxycodone HCl (Oxycodone Ir 5 Mg Tablet) 5 mg PO Q4HR PRN PRN Reason: pain Last Admin: 07/13/23 17:12 Dose: 5 mg Documented By: Admin: 07/13/23 10:52 Dose: 5 mg Documented By: Admin: 07/13/23 06:42 Dose: 5 mg Documented By: Admin: 07/12/23 23:56 Dose: 5 mg Documented By: HE Vital Signs Vital signs: Vital Signs - 8 hr 07/13/23 10:30 07/13/23 10:30 07/13/23 11:00 Pulse Rate 101 H 103 H Respiratory Rate 29 H Blood Pressure 139/90 Pulse Oximetry 97 98 07/13/23 11:00 07/13/23 11:30 07/13/23 11:30 Pulse Rate 102 H Respiratory Rate 26 H Blood Pressure 151/107 H 153/97 H Pulse Oximetry 98 07/13/23 12:09 07/13/23 12:30 07/13/23 13:00 Pulse Rate 112 H 100 H 96 H Respiratory Rate 21 22 Blood Pressure Pulse Oximetry 99 96 07/13/23 13:30 07/13/23 14:00 07/13/23 14:15 Pulse Rate 96 H 92 H Respiratory Rate 24 16 Blood Pressure 165/95 H Pulse Oximetry 96 96 07/13/23 14:15 07/13/23 14:30 07/13/23 14:30 Pulse Rate 93 H 96 H Respiratory Rate 20 21 Blood Pressure 164/87 H Pulse Oximetry 95 96 07/13/23 15:00 07/13/23 15:01 07/13/23 15:01 Pulse Rate 98 H 102 H Respiratory Rate Blood Pressure 141/100 H Pulse Oximetry 93 95 07/13/23 15:30 07/13/23 15:30 07/13/23 16:00 Pulse Rate 88 85 Respiratory Rate 19 23 Blood Pressure 150/85 H Pulse Oximetry 96 96 07/13/23 16:00 07/13/23 16:30 07/13/23 16:30 Pulse Rate 89 Respiratory Rate 19 Blood Pressure 166/94 H 168/85 H Pulse Oximetry 97 07/13/23 17:00 07/13/23 17:00 Pulse Rate 87 Respiratory Rate 25 H Blood Pressure 159/94 H Pulse Oximetry 97 <Nika Feliz, DO - Last Filed: 07/13/23 18:19> Orders Ordered: Discontinued Medications Acetaminophen (Acetaminophen 325 Mg Tablet) 975 mg PO NOW ONE Stop: 07/12/23 21:57 Last Admin: 07/12/23 22:08 Dose: 975 mg Documented By: HE Acetaminophen (Acetaminophen 325 Mg Tablet) 975 mg PO Q6H MONTEZ Last Admin: 07/13/23 17:17 Dose: Not Given Documented By: Admin: 07/13/23 11:31 Dose: 975 mg Documented By: Admin: 07/13/23 06:42 Dose: 975 mg Documented By: Admin: 07/12/23 23:46 Dose: Not Given Documented By: HE Dexamethasone (Dexamethasone 10 Mg/Ml Vial) 8 mg IV NOW ONE Stop: 07/12/23 23:28 Last Admin: 07/12/23 23:55 Dose: 8 mg Documented By: HE Hydromorphone HCl (Hydromorphone 1 Mg Inj) 1 mg IV NOW ONE Stop: 07/12/23 21:57 Last Admin: 07/12/23 22:05 Dose: 1 mg Documented By: HE Sodium Chloride (Normal Saline 0.9%) 1,000 mls @ 1,000 mls/hr IV BOLUS ONE Stop: 07/12/23 22:57 Last Infusion: 07/12/23 23:45 Dose: Infused Documented By: Admin: 07/12/23 22:16 Dose: 1,000 mls/hr Documented By: HE Metoclopramide HCl (Metoclopramide 10 Mg/2 Ml Inj) 10 mg IV NOW ONE Stop: 07/12/23 21:57 Last Admin: 07/12/23 22:08 Dose: 10 mg Documented By: HE Morphine Sulfate (Morphine 2 Mg/Ml Inj) 2 mg IV NOW ONE Stop: 07/13/23 14:18 Last Admin: 07/13/23 14:22 Dose: 2 mg Documented By: ISAURA Oxycodone HCl (Oxycodone Ir 5 Mg Tablet) 5 mg PO Q4HR PRN PRN Reason: pain Last Admin: 07/13/23 17:12 Dose: 5 mg Documented By: Admin: 07/13/23 10:52 Dose: 5 mg Documented By: Admin: 07/13/23 06:42 Dose: 5 mg Documented By: Admin: 07/12/23 23:56 Dose: 5 mg Documented By: HE Vital Signs Vital signs: Vital Signs - 8 hr 07/13/23 10:30 07/13/23 10:30 07/13/23 11:00 Pulse Rate 101 H 103 H Respiratory Rate 29 H Blood Pressure 139/90 Pulse Oximetry 97 98 07/13/23 11:00 07/13/23 11:30 07/13/23 11:30 Pulse Rate 102 H Respiratory Rate 26 H Blood Pressure 151/107 H 153/97 H Pulse Oximetry 98 07/13/23 12:09 07/13/23 12:30 07/13/23 13:00 Pulse Rate 112 H 100 H 96 H Respiratory Rate 21 22 Blood Pressure Pulse Oximetry 99 96 07/13/23 13:30 07/13/23 14:00 07/13/23 14:15 Pulse Rate 96 H 92 H Respiratory Rate 24 16 Blood Pressure 165/95 H Pulse Oximetry 96 96 07/13/23 14:15 07/13/23 14:30 07/13/23 14:30 Pulse Rate 93 H 96 H Respiratory Rate 20 21 Blood Pressure 164/87 H Pulse Oximetry 95 96 07/13/23 15:00 07/13/23 15:01 07/13/23 15:01 Pulse Rate 98 H 102 H Respiratory Rate Blood Pressure 141/100 H Pulse Oximetry 93 95 07/13/23 15:30 07/13/23 15:30 07/13/23 16:00 Pulse Rate 88 85 Respiratory Rate 19 23 Blood Pressure 150/85 H Pulse Oximetry 96 96 07/13/23 16:00 07/13/23 16:30 07/13/23 16:30 Pulse Rate 89 Respiratory Rate 19 Blood Pressure 166/94 H 168/85 H Pulse Oximetry 97 07/13/23 17:00 07/13/23 17:00 Pulse Rate 87 Respiratory Rate 25 H Blood Pressure 159/94 H Pulse Oximetry 97 MDM - Headache <Og Yun MD - Last Filed: 07/12/23 23:29> Lab Data 07/12/23 17:13 07/13/23 07:43 Labs: Lab Results 07/12/23 07/13/23 Range/Units 17:13 07:43 WBC 7.4 (4.5-11.0) X10^3/uL RBC 4.51 (4.5-5.9) X10^6/uL Hgb 12.1 L (13.5-17.5) g/dL Hct 37.0 L (41-53) % MCV 82.0 (80-100) fL MCH 26.9 (26-34) PG MCHC 32.8 (30-36) % RDW 15.3 H (11.6-14.8) % Plt Count 372 (150-400) X10^3/uL Neut % (Auto) 59.6 (50-75) % Lymph % (Auto) 32.9 (25-40) % Mclennan % (Auto) 6.1 (3-14) % Eos % (Auto) 0.8 L (2-4) % Baso % (Auto) 0.6 (0-2) % Neut # (Auto) 4400 (8837-0106) /uL Lymph # (Auto) 2500 (1062-2267) /uL Mclennan # (Auto) 500 (0-900) /uL Eos # (Auto) 100 (0-450) /uL Baso # (Auto) 0 (0-100) /uL Sodium 140 140 (137-145) mmol/L Potassium 3.2 L 4.0 (3.4-5.1) mmol/L Chloride 101 108 H (98-107) mmol/L Carbon Dioxide 26 20 L (22-32) mmol/L BUN 38 H 35 H (9-20) mg/dL Creatinine 1.79 H 1.16 (0.66-1.25) mg/dL Estimated GFR 40 L > 60 (>60) mL/min BUN/Creatinine Ratio 21.2 30.2 H (6-22) Glucose 123 H 101 (80-110) mg/dL Calcium 13.0 H* 11.5 H (8.4-10.2) mg/dL Total Bilirubin 0.6 0.5 (0.2-1.3) mg/dL AST 44 36 (17-59) IU/L ALT 19 17 (<50) IU/L Alkaline Phosphatase 145 H 122 (38-126) U/L Total Protein 9.4 H 8.4 H (6.3-8.2) g/dL Albumin 4.3 3.9 (3.5-5.0) g/dL Globulin 5.1 H 4.5 H (1.7-4.1) g/dL Albumin/Globulin Ratio 0.8 L 0.9 L (1.0-2.8) MDM Narrative Medical decision making narrative: Patient is severely kyphotic. He has some weakness in his right upper extremity but it has not enough to let the arm hit the bed. Says that weakness has been chronic. There is no weakness in the legs no weakness in the left upper extremity. He has profound stiffness to his neck that has not been evaluated I do not see a recent CT of the neck. I do not really suspect meningitis as he has no fever or white count but I do suspect lesions to the spine and I am concerned that he might have an unstable pathologic fracture there. We will also do broad-spectrum labs as well today to make sure there is no admittable diagnosis. 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 I spoke to Dr. Villafana from Neurosurgery at [facility] who agrees to accept the patient. They unfortunately do not have a bed available right now. He recommended dexamethasone and a C-collar until were able to get a bed down to the [facility]. <Nika Feliz, - Last Filed: 07/13/23 18:19> Lab Data Labs: Lab Results 07/12/23 07/13/23 Range/Units 17:13 07:43 WBC 7.4 (4.5-11.0) X10^3/uL RBC 4.51 (4.5-5.9) X10^6/uL Hgb 12.1 L (13.5-17.5) g/dL Hct 37.0 L (41-53) % MCV 82.0 (80-100) fL MCH 26.9 (26-34) PG MCHC 32.8 (30-36) % RDW 15.3 H (11.6-14.8) % Plt Count 372 (150-400) X10^3/uL Neut % (Auto) 59.6 (50-75) % Lymph % (Auto) 32.9 (25-40) % Mclennan % (Auto) 6.1 (3-14) % Eos % (Auto) 0.8 L (2-4) % Baso % (Auto) 0.6 (0-2) % Neut # (Auto) 4400 (3355-2798) /uL Lymph # (Auto) 2500 (3680-0415) /uL Mclennan # (Auto) 500 (0-900) /uL Eos # (Auto) 100 (0-450) /uL Baso # (Auto) 0 (0-100) /uL Sodium 140 140 (137-145) mmol/L Potassium 3.2 L 4.0 (3.4-5.1) mmol/L Chloride 101 108 H (98-107) mmol/L Carbon Dioxide 26 20 L (22-32) mmol/L BUN 38 H 35 H (9-20) mg/dL Creatinine 1.79 H 1.16 (0.66-1.25) mg/dL Estimated GFR 40 L > 60 (>60) mL/min BUN/Creatinine Ratio 21.2 30.2 H (6-22) Glucose 123 H 101 (80-110) mg/dL Calcium 13.0 H* 11.5 H (8.4-10.2) mg/dL Total Bilirubin 0.6 0.5 (0.2-1.3) mg/dL AST 44 36 (17-59) IU/L ALT 19 17 (<50) IU/L Alkaline Phosphatase 145 H 122 (38-126) U/L Total Protein 9.4 H 8.4 H (6.3-8.2) g/dL Albumin 4.3 3.9 (3.5-5.0) g/dL Globulin 5.1 H 4.5 H (1.7-4.1) g/dL Albumin/Globulin Ratio 0.8 L 0.9 L (1.0-2.8) Imaging Data CT - cervical spine: Radiologist's Impression: PROCEDURE: CT CERVICAL SPINE WO CON INDICATIONS: Stiff neck, multiple myeloma TECHNIQUE: Noncontrast 3 mm thick sections acquired from the skull base to the T4 level. Sagittal and coronal reformats were then constructed. For radiation dose reduction, the following was used: automated exposure control, adjustment of mA and/or kV according to patient size. COMPARISON: [facility], CR, XR THORACIC SPINE 2V, 06/01/2023, 15:43. [facility], CT, CT HEAD/BRAIN WO/W CON, 07/12/2023, 17:30. FINDINGS: Image quality: Diagnostic Bones: There are numerous scattered lytic lesions of multiple myeloma seen throughout the imaged inferior calvarium, cervical spine, and upper chest. Lytic lesions involve the the entire cervical spine with age-indeterminate involvement of the dens of the C2 vertebral body. This results in likely, age-indeterminate indeterminate fracture with retrolisthesis of the C2 vertebral body relative to the dens and C1. This results in severe spinal canal stenosis at this level. There is also moderate lytic lesion involving the majority of the C4 vertebral body with mild loss of vertebral body height. Severe spinal canal stenosis identified at C5 and C6. Craniocervical junction is intact. There also lytic lesion seen in the bilateral scapula, clavicle, and upper ribs. Soft tissues: Prevertebral soft tissues are normal in thickness. No paravertebral hematomas. No apical pneumothoraces. Associated soft tissue densities noted in a few of the lytic lesions. For example the left lamina of C7. This causes mild spinal canal stenosis. IMPRESSION: Innumerable lytic lesions noted throughout the imaged osseous structures of the skull base and cervical spine as well as the upper chest. Findings are compatible with history of multiple myeloma. There are prominent/large lytic lesions involving the C2 vertebral body resulting in pathologic fracture at the base of the dens and retrolisthesis of C2 vertebral body relative to the C2 dens and C1 vertebral body. There is resultant severe spinal canal stenosis at this level. Large lytic lesion at C4 resulting in vertebral body height loss and moderate- severe spinal canal stenosis. Moderate degenerative changes at C5-6 and C7 with severe spinal canal stenosis at these levels. Findings were discussed with Dr. Yun at 2310 hrs PST. Dictated by: Augustus Gomez M.D. on 07/12/2023 at 21:54 CT scan - head: Radiologist's Impression: PROCEDURE: CT HEAD/BRAIN WO/W CON INDICATIONS: 03/01 headache, multiple myeloma mets to brain TECHNIQUE: 4.5 mm thick angled axial sections acquired from the foramen magnum to the vertex both before and after the administration of intravenous contrast, with coronal and sagittal reformats. For radiation dose reduction, the following was used: automated exposure control, adjustment of mA and/or kV according to patient size. COMPARISON: None. FINDINGS: Image quality: Excellent. CSF spaces: Basal cisterns are patent. No extra-axial fluid collections. Ventricles are symmetric in size and shape. Brain: No midline shift. No intracranial bleeds or masses. No abnormal intracranial enhancement. There is cerebral volume loss for age. There is periventricular white matter chronic small vessel ischemic change. There is intracranial internal carotid artery atherosclerosis. Skull and face: Multiple punched-out lesions can be seen involving the calvarium, which are consistent with the given clinical history of multiple myeloma. There is enhancing soft tissue seen associated with a left calvarial lesion, as on series 3, image 19. Sinuses: Visualized sinuses and mastoids are clear. IMPRESSION: Multiple calvarial foci of multiple myeloma can be seen. No findings of intracranial metastases are seen. Dictated by: Neil Mims M.D. on 07/12/2023 at 17:03 [facility] Narrative Medical decision making narrative: Patient is severely kyphotic. He has some weakness in his right upper extremity but it has not enough to let the arm hit the bed. Says that weakness has been chronic. There is no weakness in the legs no weakness in the left upper extremity. He has profound stiffness to his neck that has not been evaluated I do not see a recent CT of the neck. I do not really suspect meningitis as he has no fever or white count but I do suspect lesions to the spine and I am concerned that he might have an unstable pathologic fracture there. We will also do broad-spectrum labs as well today to make sure there is no admittable diagnosis. 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 I spoke to Dr. Villafana from Neurosurgery at [facility] who agrees to accept the patient. They unfortunately do not have a bed available right now. He recommended dexamethasone and a C-collar until were able to get a bed down to the [facility]. Dr. Feliz-patient signed out to me by Dr. Joy I have seen evaluated patient myself. He is going to down so his nose is resting on the chin of the [place] collar. He remains neurologically intact. He continues to have some neck pain. Family at bedside. Patient has been accepted at [facility] awaiting for bed placement. They approve that he could eat. Discharge Plan Departure Patient Disposition: [facility] Clinical Impression: Multiple myeloma Qualifiers: Multiple myeloma remission status: not in remission Qualified Code(s): C90.00 - Multiple myeloma not having achieved remission Pathologic compression fracture of spine Qualifiers: Encounter type: initial encounter Qualified Code(s): M48.50XA - Collapsed vertebra, not elsewhere classified, site unspecified, initial encounter for fracture Prescriptions: No Action nicotine (polacrilex) 2 mg lozenge 2 mg buccal Q6H PRN (Reason: nicotine cravings) Qty: 72 4RF cyclobenzaprine 10 mg tablet 10 mg PO TID Qty: 60 1RF varenicline 0.5 mg (11)- 1 mg (42) tablets,dose pack 0.5 ea PO DIRECTED Qty: 53 0RF hydrocodone-acetaminophen 10-325 mg tablet 1 tab PO Q8H Qty: 30 0RF ibuprofen 200 mg tablet 400 mg PO Q6H Qty: 60 0RF docusate sodium [Colace] 100 mg capsule 100 mg PO BID Qty: 30 0RF acetaminophen [Tylenol] 325 mg capsule 650 mg PO QID PRN (Reason: pain) Qty: 60 0RF Referrals: Courtney Freed MD [Primary Care Provider] -
--- NOTE | 2023-07-12 19:43 | DI.CT.S_ITS ---
PROCEDURE: CT CERVICAL SPINE WO CON INDICATIONS: Stiff neck, multiple myeloma TECHNIQUE: Noncontrast 3 mm thick sections acquired from the skull base to the T4 level. Sagittal and coronal reformats were then constructed. For radiation dose reduction, the following was used: automated exposure control, adjustment of mA and/or kV according to patient size. COMPARISON: [facility], CR, XR THORACIC SPINE 2V, 06/01/2023, 15:43. [facility], CT, CT HEAD/BRAIN WO/W CON, 07/12/2023, 17:30. FINDINGS: Image quality: Diagnostic Bones: There are numerous scattered lytic lesions of multiple myeloma seen throughout the imaged inferior calvarium, cervical spine, and upper chest. Lytic lesions involve the the entire cervical spine with age-indeterminate involvement of the dens of the C2 vertebral body. This results in likely, age-indeterminate indeterminate fracture with retrolisthesis of the C2 vertebral body relative to the dens and C1. This results in severe spinal canal stenosis at this level. There is also moderate lytic lesion involving the majority of the C4 vertebral body with mild loss of vertebral body height. Severe spinal canal stenosis identified at C5 and C6. Craniocervical junction is intact. There also lytic lesion seen in the bilateral scapula, clavicle, and upper ribs. Soft tissues: Prevertebral soft tissues are normal in thickness. No paravertebral hematomas. No apical pneumothoraces. Associated soft tissue densities noted in a few of the lytic lesions. For example the left lamina of C7. This causes mild spinal canal stenosis. IMPRESSION: Innumerable lytic lesions noted throughout the imaged osseous structures of the skull base and cervical spine as well as the upper chest. Findings are compatible with history of multiple myeloma. There are prominent/large lytic lesions involving the C2 vertebral body resulting in pathologic fracture at the base of the dens and retrolisthesis of C2 vertebral body relative to the C2 dens and C1 vertebral body. There is resultant severe spinal canal stenosis at this level. Large lytic lesion at C4 resulting in vertebral body height loss and moderate-severe spinal canal stenosis. Moderate degenerative changes at C5-6 and C7 with severe spinal canal stenosis at these levels. Findings were discussed with Dr. Yun at 2310 hrs PST. Dictated by: Augustus Gomez M.D. on 07/12/2023 at 21:54 Approved by: Augustus Gomez M.D. on 07/12/2023 at 22:16
[2023-07-12 19:52] LABS: Add Manual Diff / Slide Review NO; Basophils Absolute Auto 0 /uL (0-100); Basophils Percent Auto 0.6 % (0-2); Eosinophils Absolute Auto 100 /uL (0-450); Eosinophils Percent Auto 0.8 % (2-4); Hemoglobin 12.1 g/dL (13.5-17.5); Lymphocytes Absolute Auto 2500 /uL (1100-4500); Lymphocytes Percent Auto 32.9 % (25-40); Mean Corpuscular HGB Conc 32.8 % (30-36); Mean Corpuscular Hemoglobin 26.9 PG (26-34); Monocytes Absolute Auto 500 /uL (0-900); Monocytes Percent Auto 6.1 % (3-14); Neutrophils Absolute Auto 4400 /uL (1500-7000); Neutrophils Percent Auto 59.6 % (50-75); Platelet Count 372 X10^3/uL (150-400); Red Blood Cell Count 4.51 X10^6/uL (4.5-5.9); Red Cell Distribution Width 15.3 % (11.6-14.8); White Blood Cell Count 7.4 X10^3/uL (4.5-11.0)
[2023-07-12 20:00] LABS: Alanine Aminotransferase 19 IU/L (<50); Albumin 4.3 g/dL (3.5-5.0); Albumin Globulin Ratio 0.8 (1.0-2.8); Alkaline Phosphatase 145 U/L (38-126); Aspartate Aminotransferase 44 IU/L (17-59); BUN Creatinine Ratio 21.2 (6-22); Bilirubin Total 0.6 mg/dL (0.2-1.3); Blood Urea Nitrogen 38 mg/dL (9-20); Carbon Dioxide 26 mmol/L (22-32); Chloride 101 mmol/L (98-107); Estimated Glomerular Filt Rate 40 mL/min (>60); Globulin 5.1 g/dL (1.7-4.1); Glucose 123 mg/dL (80-110); HEMOLYSIS < 15 (0-50); Potassium 3.2 mmol/L (3.4-5.1); Sodium 140 mmol/L (137-145); Total Protein 9.4 g/dL (6.3-8.2)
[2023-07-12] MEDS: HYDROMORPHONE 1 MG INJ IV (22:05)
[2023-07-12] MEDS: METOCLOPRAMIDE 10 MG/2 ML INJ IV (22:08)
[2023-07-12] MEDS: ACETAMINOPHEN 325 MG TABLET 975 MG PO (22:08)
[2023-07-12] MEDS: SODIUM CHLORIDE 0.9% 1,000 ML 1000 ML IV (22:16)
--- NOTE | 2023-07-12 22:47 | PC.NURSE ---
Started page to [facility] for transfer, facesheet sent, images pushed.
[2023-07-12] MEDS: DEXAMETHASONE 10 MG/ML VIAL 8 MG IV (23:55)
[2023-07-12] MEDS: OXYCODONE IR 5 MG TABLET PO (23:56)
[2023-07-13] VITALS (39 sets, daily range): BP systolic 117–188; BP diastolic 79–111; PULSE 85–112; RESP 10–29; O2SAT 93–99
--- NOTE | 2023-07-13 00:16 | PC.NURSE ---
Pt accepted at [facility] for Neurosurgery. Transfer center called to say they would have a bed by mid-day Tue07/13/23. F/U with transfer center mid morning 07/13
--- NOTE | 2023-07-13 00:23 | PC.NURSE ---
Pt placed in hospital bed for comfort while waiting for bed assignment at [facility]
[2023-07-13] MEDS: ACETAMINOPHEN 325 MG TABLET 975 MG PO ×2 (06:42→11:31)
[2023-07-13] MEDS: OXYCODONE IR 5 MG TABLET PO ×3 (06:42→17:12)
[2023-07-13 08:01] LABS: Alanine Aminotransferase 17 IU/L (<50); Albumin 3.9 g/dL (3.5-5.0); Albumin Globulin Ratio 0.9 (1.0-2.8); Alkaline Phosphatase 122 U/L (38-126); Aspartate Aminotransferase 36 IU/L (17-59); BUN Creatinine Ratio 30.2 (6-22); Bilirubin Total 0.5 mg/dL (0.2-1.3); Blood Urea Nitrogen 35 mg/dL (9-20); Calcium 11.5 mg/dL (8.4-10.2); Carbon Dioxide 20 mmol/L (22-32); Chloride 108 mmol/L (98-107); Estimated Glomerular Filt Rate > 60 mL/min (>60); Globulin 4.5 g/dL (1.7-4.1); Glucose 101 mg/dL (80-110); HEMOLYSIS < 15 (0-50); Sodium 140 mmol/L (137-145); Total Protein 8.4 g/dL (6.3-8.2)
--- NOTE | 2023-07-13 12:15 | PC.NURSE ---
Pt states that he removed that aspen collar. Dr Feliz and I repositioned the collar and informed pt that he should not remove the collar. Pt verbalized understanding.
--- NOTE | 2023-07-13 12:53 | PC.NURSE ---
[id number]-Called [facility] for update, spoke with Phoebe, still waiting for bed. Stated they will call us when they get a room assignment.
[2023-07-13] MEDS: MORPHINE 2 MG/ML INJ IV (14:22)
--- NOTE | 2023-07-13 17:16 | PC.NURSE ---
This RN gave verbal report to KATIE Brito from [facility].
== END 2023-07-13 17:51 | disposition short-term general hospital (02) ==
PROVIDERS: Family Medicine Addiction Medicine; Emergency Provider Emergency Medicine; PCP Family Medicine
DX: C90.00 Multiple myeloma not having achieved remission (principal); M84.58XA Pathological fracture in neoplastic disease, other specified site, initial encounter for fracture
CPT/HCPCS: 36415; 70470; 72125; 80053; 85025; 96374; 96375; 99284; J1100; J1170; J2270; J2765; Q9967

== ENCOUNTER 2024-01-15 16:04 | Emergency (ER) | payer MEDICARE, SELFPAY ==
[2023-05-26 13:47] VITALS: BMI 19.5
[2024-01-15 16:09] VITALS: BP 138/71; PULSE 58; RESP 15; TEMP 37.1; O2SAT 91; BMI 19.6
[2024-01-15 16:13] VITALS: PULSE 61
--- NOTE | 2024-01-15 16:14 | DI.RAD.S_ITS ---
PROCEDURE: XR FOOT LT MIN 3V INDICATIONS: swelling. trauma? TECHNIQUE: 3 views of the foot were acquired. COMPARISON: None. FINDINGS: Bones: No fractures or dislocations. No suspicious bony lesions. Hallux valgus. Soft tissues: No tibiotalar joint effusion. Achilles tendon appears normal. Plantar foot edema. IMPRESSION: Plantar foot edema, without fracture. Dictated by: Pacheco Morel M.D. on 01/15/2024 at 17:13 Approved by: Pacheco Morel M.D. on 01/15/2024 at 17:14
--- NOTE | 2024-01-15 16:37 | ED_ITS ---
HPI - Extremity Injury (Lower) General Chief Complaint: Extremity Injury, Lower Stated Complaint: infected L foot Time Seen by Provider: 01/15/24 16:08 Mode of arrival: EMS History of Present Illness HPI Narrative: 68-year-old gentleman with a history of multiple myeloma, closed fracture of C2 non operable, chronic pain who was admitted to [facility] for fecal impaction on September 12 discharged on March 12 2 [facility]. Extended stay was due to pain management, the non operable C-spine fracture, severe obstipation, patient has multiple osteolytic lesions, Oncology palliative Care Services not quite ready for hospice. Discharged on the . Staff today notice increasing redness in his left foot with some minor swelling through the left foot. He states there some pain in between the 1st and 2nd toes with some minor skin breakdown there. This looks like a developing cellulitis without underlying abscess Related Data Previous Rx's Medication Instructions Recorded acetaminophen 325 mg capsule 650 mg (2 x 325 mg) PO QID PRN 02/09/23 (Tylenol) pain #60 caps docusate sodium 100 mg capsule 100 mg PO BID #30 caps 02/09/23 (Colace) ibuprofen 200 mg tablet 400 mg (2 x 200 mg) PO Q6H #60 tabs 02/09/23 cyclobenzaprine 10 mg tablet 10 mg PO TID #60 tabs 05/27/23 nicotine (polacrilex) 2 mg buccal 2 mg buccal Q6H PRN nicotine 05/27/23 lozenge cravings #72 ea varenicline 0.5 mg (11)-1 mg (42) 0.5 ea PO DIRECTED #53 ea 06/14/23 tablets in a dose pack hydrocodone 10 mg-acetaminophen 1 tab PO Q8H #30 tabs 06/30/23 325 mg tablet doxycycline hyclate 100 mg capsule 100 mg PO BID #20 caps 01/15/24 Allergies Allergy/AdvReac Type Severity Reaction Status Date / Time codeine Allergy stomach Verified 01/15/24 16:08 cramp Patient History Medical History (Updated 01/15/24 @ 16:51 by Krupa Cruz MD) Lambda light chain myeloma Elevated serum protein level Vertebral compression fracture Bone pain Tobacco use Loss of height Weight loss Social History household members: spouse Smoking Status: Former smoker Smoking Status: Former smoker tobacco type: cigarettes alcohol intake frequency: a few times a week Substance Use Type: marijuana Exam Initial Vital Signs Initial Vital Signs: Vital Signs Temperature 98.8 F 01/15/24 16:09 Pulse Rate 58 L 01/15/24 16:09 Respiratory Rate 15 01/15/24 16:09 Blood Pressure 138/71 01/15/24 16:09 Pulse Oximetry 91 01/15/24 16:09 Oxygen Delivery Method Room Air 01/15/24 16:09 General: Chronically ill-appearing, nontoxic, cheeks are slightly flushed. HEENT: Moist mucous membranes, normal sclera with reactive pupils, Neck: Leaning forward with moderate kyphosis from multiple cervical compression fractures and his known C2 fracture Respiratory: Lungs are clear to auscultation, no wheezing no rales no rhonchi. Full and symmetrical air movement Cardiac: Regular rate and rhythm no murmurs no bruits Abdomen: Soft, nontender, good bowel tones, no flank pain Skin: Left foot with erythema over much of the foot with swelling over the dorsum. There was no lymphangitic streaking, no abscess no obvious area of skin breakdown Neurologic: Globally weak, otherwise nonfocal exam Extremities: No obvious trauma, mild onychomycosis and tinea pedis. The small cracks in the tinea pedis or likely the source of his left foot infection Psych: Cooperative, appropriate insight and affect Course Orders Ordered: ED Orders 01/15/24 16:14 XR foot LT min 3V Stat 01/15/24 16:35 Blood Culture Stat Complete Blood Count AUTO DIFF Stat Comprehensive Metabolic Panel Stat Lactate (Lactic Acid) Stat Procalcitonin Stat Sodium Chloride (Normal Saline 0.9%) 1,000 mls @ 1,000 mls/hr IV BOLUS ONE Stop: 01/15/24 17:34 Vital Signs Vital signs: Vital Signs - 8 hr 01/15/24 16:09 01/15/24 16:13 Temperature 98.8 F Pulse Rate 58 L Pulse Rate [Bilateral Dorsalis Pedis] 61 Respiratory Rate 15 Blood Pressure 138/71 Pulse Oximetry 91 Oxygen Delivery Method Room Air MDM - Extremity Injury (Lower) MDM Narrative Medical decision making narrative: 68-year-old gentleman with metastatic multiple myeloma multiple cervical compression fractures and a nonoperable C2 compression fracture, just spent 4 months at [facility] with multiple consulting services including spine surgery, Orthopedics, palliative Care, surgery, Oncology with primary care through the admitting medicine service. Discharge to [facility]. He developed some left foot swelling. There was no fever tachycardia or other signs of sepsis. No lymphangitic streaking, no underlying abscess. Suspect that the course of infection is bacteria getting through small skin abnormalities from his tinea pedis. X-ray does not show any subcutaneous air. Patient is not in significant distress This appears to be an uncomplicated superficial cellulitis secondary to tinea pedis not involving abscess and not requiring additional workup or hospitalization at this time. We will recommend treatment with 10 days of doxycycline. This more abbreviated approach to his infection is reviewed with the patient in real-time and with shared decision-making he very much agreed to not proceeding with more inclusive workup. He was quite excited about the idea of discharge from the emergency department. Discharge Plan Departure Patient Disposition: Home Clinical Impression: Cellulitis of foot, left Instructions: DI for Cellulitis -- Adult Activity Restrictions/Additional Instructions: Thank you for coming in today It looks like the mild skin breakdown you have between your toes as allowed some bacteria to get under your skin. There does not appear to be an abscess, this does not appear to be a deeper infection and it is not sepsis (total-body infection) I am going to suggest that we treat this with 10 days of oral antibiotics. He had been given the 1st dose of doxycycline in the emergency department. I have written a prescription to go back with you to [facility] for them to have filled and continued tomorrow You do have all appropriate medications including pain regimen available to you at [facility] and I am not going to recommend any changes at this time If you find that you are getting worse please feel free to return Prescriptions: New doxycycline hyclate 100 mg capsule 100 mg PO BID Qty: 20 0RF No Action nicotine (polacrilex) 2 mg lozenge 2 mg buccal Q6H PRN (Reason: nicotine cravings) Qty: 72 4RF cyclobenzaprine 10 mg tablet 10 mg PO TID Qty: 60 1RF varenicline 0.5 mg (11)- 1 mg (42) tablets,dose pack 0.5 ea PO DIRECTED Qty: 53 0RF hydrocodone-acetaminophen 10-325 mg tablet 1 tab PO Q8H Qty: 30 0RF ibuprofen 200 mg tablet 400 mg PO Q6H Qty: 60 0RF docusate sodium [Colace] 100 mg capsule 100 mg PO BID Qty: 30 0RF acetaminophen [Tylenol] 325 mg capsule 650 mg PO QID PRN (Reason: pain) Qty: 60 0RF Referrals: Courtney Freed MD [Primary Care Provider] - Stand Alone Forms: Patient Portal/API
[2024-01-15] MEDS: DOXYCYCLINE HYCLATE 100 MG TABLET PO (16:47)
[2024-01-15 18:29] VITALS: BP 136/67; PULSE 67; RESP 18; O2SAT 98
== END 2024-01-15 18:30 | disposition home or self-care (01) ==
PROVIDERS: Emergency Provider Emergency Medicine; PCP Family Medicine
DX: L03.116 Cellulitis of left lower limb (principal)
CPT/HCPCS: 73630; 99283

== ENCOUNTER 2024-03-11 00:47 | Emergency (ER) | payer MEDICARE, MEDICAID, SELFPAY ==
[2023-05-26 13:47] VITALS: BMI 19.5
[2024-03-11] VITALS (12 sets, daily range): BP systolic 113–168; BP diastolic 58–80; PULSE 40–65; RESP 14–29; TEMP 36.9–37.4; O2SAT 92–98; BMI 20.8
--- NOTE | 2024-03-11 01:05 | PC.NURSE ---
Pt arrives by EMS. Wound to right side of forehead is wrapped. No drainage noted. Pt is awake and alert. Denies pain at injury site. Dressing removed and site irrigated and cleaned.
--- NOTE | 2024-03-11 01:13 | ED.WOUNDLAC ---
HPI - Wound/Laceration General Chief Complaint: Wound/Laceration Stated Complaint: fell out of bed Time Seen by Provider: 03/11/24 01:13 Source: patient and EMS Mode of arrival: EMS History of Present Illness HPI narrative: 68-year-old male fell from bed prior to arrival by EMS, no loss of consciousness, has increasing headache, chronic neck pain, no surgeries, increased neck pain. No tingling or numbness to upper extremities. No difficulties with walking. No low back pain or mid back pain. He does not take blood thinner medications. Related Data Previous Rx's Medication Instructions Recorded acetaminophen 325 mg capsule 650 mg (2 x 325 mg) PO QID PRN 02/09/23 (Tylenol) pain #60 caps docusate sodium 100 mg capsule 100 mg PO BID #30 caps 02/09/23 (Colace) ibuprofen 200 mg tablet 400 mg (2 x 200 mg) PO Q6H #60 tabs 02/09/23 cyclobenzaprine 10 mg tablet 10 mg PO TID #60 tabs 05/27/23 nicotine (polacrilex) 2 mg buccal 2 mg buccal Q6H PRN nicotine 05/27/23 lozenge cravings #72 ea varenicline 0.5 mg (11)-1 mg (42) 0.5 ea PO DIRECTED #53 ea 06/14/23 tablets in a dose pack hydrocodone 10 mg-acetaminophen 1 tab PO Q8H #30 tabs 06/30/23 325 mg tablet doxycycline hyclate 100 mg capsule 100 mg PO BID #20 caps 01/15/24 Allergies Allergy/AdvReac Type Severity Reaction Status Date / Time codeine Allergy stomach Verified 01/15/24 16:08 cramp Review of Systems Review of Systems Narrative: per HPI Patient History Medical History (Updated 03/11/24 @ 01:48 by Oscar Villanueva MD) Lambda light chain myeloma Elevated serum protein level Vertebral compression fracture Bone pain Tobacco use Loss of height Weight loss Social History household members: spouse Smoking Status: Former smoker Smoking Status: Former smoker tobacco type: cigarettes alcohol intake frequency: a few times a week Substance Use Type: marijuana Exam Narrative Exam Narrative: GENERAL: Well-developed patient, in mild distress. HEAD: Right anterior scalp laceration above hairline small, about 2.5cm linear EYES: Pupils equal round and reactive. Extraocular motions intact. No scleral icterus. No injection or drainage. ENT: Nose without bleeding, purulent drainage. Throat without erythema, tonsillar hypertrophy or exudate. Airway patent. NECK: Trachea midline. Non tender CARDIOVASCULAR: Regular rate and rhythm without murmurs, gallops, or rubs. RESPIRATORY: Clear to auscultation. Breath sounds equal bilaterally. No wheezes, rales, or rhonchi. GASTROINTESTINAL: Abdomen soft, non-tender, nondistended. EXTREMITIES: No edema or joint tenderness. BACK: Nontender without deformity or crepitance. No flank tenderness. NEURO: AOx3. Motor functions grossly nonfocal SKIN: No rash or erythema of visible areas Initial Vital Signs Initial Vital Signs: Vital Signs Temperature 98.4 F 03/11/24 00:54 Pulse Rate 45 L 03/11/24 00:54 Respiratory Rate 19 03/11/24 00:54 Blood Pressure 144/78 H 03/11/24 00:54 Pulse Oximetry 97 03/11/24 00:54 Oxygen Delivery Method Room Air 03/11/24 00:54 Procedures Laceration Repair Laceration 1: Time of procedure: 04:55 Site: scalp (Right forehead scalp line perpendicular, extending posteriorly toward vertex, about 2.5cm length, linear) Side (If applicable): right Size (cm): 2.5 Description: linear Depth: simple, single layer Local Anesthetic: other anesthetic (Let gel application) Amount of anesthesia used (mL): 2.0 Skin layer closed with: cindi Number of sutures: 5 Course Orders Ordered: ED Orders 03/11/24 01:14 CT cervical spine wo con Stat CT head/brain wo con Stat Discontinued Medications Bacitracin (Bacitracin Oint 0.9 Gm Pckt) 1 applic TOP NOW ONE Stop: 03/11/24 04:34 Last Admin: 03/11/24 04:44 Dose: 1 applic Documented By: Lidocaine/Prilocaine (Lidocaine/Prilocaine 5 Gm) 5 gm TOP NOW ONE Stop: 03/11/24 03:25 Last Admin: 03/11/24 03:28 Dose: 5 gm Documented By: Vital Signs Vital signs: Vital Signs - 8 hr 03/11/24 00:54 03/11/24 01:57 03/11/24 02:00 Temperature 98.4 F Pulse Rate 45 L 42 L 41 L Respiratory Rate 19 16 14 Blood Pressure 144/78 H Pulse Oximetry 97 94 94 Oxygen Delivery Method Room Air 03/11/24 02:01 03/11/24 02:01 03/11/24 02:30 Temperature Pulse Rate 41 L 44 L Respiratory Rate 23 22 Blood Pressure 113/58 L Pulse Oximetry 94 95 Oxygen Delivery Method Room Air 03/11/24 02:31 03/11/24 02:31 03/11/24 03:00 Temperature Pulse Rate 43 L 40 L Respiratory Rate 26 H 15 Blood Pressure 117/59 L Pulse Oximetry 95 95 Oxygen Delivery Method 03/11/24 03:30 03/11/24 03:32 03/11/24 03:32 Temperature Pulse Rate 52 L 52 L Respiratory Rate 29 H 25 H Blood Pressure 131/76 Pulse Oximetry 96 96 Oxygen Delivery Method 03/11/24 04:44 03/11/24 04:45 03/11/24 04:45 Temperature Pulse Rate 52 L 52 L Respiratory Rate Blood Pressure 168/80 H Pulse Oximetry 92 97 Oxygen Delivery Method Room Air 03/11/24 05:22 Temperature 99.4 F Pulse Rate 65 Respiratory Rate 18 Blood Pressure 135/78 Pulse Oximetry 98 Oxygen Delivery Method Room Air MDM - Wound/Laceration Imaging Data CT scan - head: Radiologist's Impression: [place] [address] CT Scan Report Signed Patient: Jose Gomez MR#: [id number] : 1955 Acct:[id number] Age/Sex: 68 / M Date of Service: 03/11/24 Loc: ED Accession Number: [id number] Procedure: CT head/brain wo con Ordering Provider: Oscar Villanueva MD PROCEDURE: CT HEAD/BRAIN WO CON INDICATIONS: Fall,head lac TECHNIQUE: Noncontrast 4.5 mm thick angled axial sections acquired from the foramen magnum to the vertex, with coronal and sagittal reformats. For radiation dose reduction, the following was used: automated exposure control, adjustment of mA and/or kV according to patient size. COMPARISON: Located Within [facility], CT, CT HEAD WITHOUT CONTRAST, 10/26/2023, 23:40. [facility], CT, CT CERVICAL SPINE WO CON, 03/11/2024, 1:27. Located Within [facility], CT, CT HEAD WITHOUT CONTRAST, 01/26/2024, 10:05. FINDINGS: Image quality: Mild streak artifact can be seen through the skull base. CSF spaces: Basal cisterns are patent. No extra-axial fluid collections. The ventricles are symmetric in size and shape. Brain: No intracranial bleeds or masses. There is cerebral volume loss for age, with resultant ventricular and sulcal prominence. There are periventricular and deep white matter chronic small vessel ischemic changes. There is intracranial internal carotid artery atherosclerosis. Skull and face: Multiple lytic lesions can be seen of the calvarium. No theo calvarial fracture is seen. There is a mild right forehead scalp hematoma seen, without an associated fracture Sinuses: There is moderate mucosal thickening within the right maxillary sinus. Milder mucosal thickening can be seen elsewhere within the paranasal sinuses. There is prominent right mastoid air cell fluid seen. IMPRESSION: Mild right forehead scalp hematoma seen, without an associated fracture. Multiple levels of lytic lesions can be seen within the calvarium, which are consistent with the known history multiple myeloma. No acute intracranial hemorrhage is seen. No acute intracranial process is seen. Additional findings: Right maxillary sinus disease Right mastoid air cell fluid Dictated by: Neil Mims M.D. on 03/11/2024 at 0:40 Approved by: Neil Mims M.D. on 03/11/2024 at 0:42 CT - cervical spine: Radiologist's Impression: Close Cervical Spine CT (Signed) Neil Mims - 03/11/[address] (Signed) Neil Mims - 03/11/24 [place] [address] CT Scan Report Signed Patient: Jose Gomez MR#: [id number] : 1955 Acct:[id number] Age/Sex: 68 / M Date of Service: 03/11/24 Loc: ED Accession Number: [id number] Procedure: CT cervical spine wo con Ordering Provider: Oscar Villanueva MD PROCEDURE: CT CERVICAL SPINE WO CON INDICATIONS: neck pain after fall, hx neck fractures TECHNIQUE: Noncontrast 3 mm thick sections acquired from the skull base to the T4 level. Sagittal and coronal reformats were then constructed. For radiation dose reduction, the following was used: automated exposure control, adjustment of mA and/or kV according to patient size. COMPARISON: Located Within [facility], CT, CT CERVICAL SPINE WITHOUT CONTRAST, 12/20/2023, 16:03. [facility], CT, CT CERVICAL SPINE WO CON, 07/12/2023, 19:55. [facility], CT, CT HEAD/BRAIN WO CON, 03/11/2024, 1:19. FINDINGS: Image quality: This examination is somewhat limited by quantum mottle artifact. Bones: Multiple sites of lytic lesions are seen. There is a significant remote fracture C2, with significant abnormal alignment at this site, with the dens shifted anteriorly in relation to the C2 body. There is a prominent lytic lesion C4, with 80-90% loss height anteriorly. This fracture is similar to the prior. Mild fractures can be seen of C5 and C6. Milder chronic fractures can be seen elsewhere. Partial ossification of the posterior longitudinal ligament can be seen, which is centered at the C5 level. Multiple levels of significant facet arthropathy can be seen. Alignment abnormalities are seen, with reversal of the normal cervical lordosis, centered at the C4 level. Soft tissues: Prevertebral soft tissues are normal in thickness. No paravertebral hematomas. No apical pneumothoraces. IMPRESSION: No theo acute fracture is identified. Multiple areas bony lysis and pathologic fractures can be seen, which are consistent with the known history of multiple myeloma. Significant prior fracture of C2, with the dens shifted anteriorly in relation to the C2 body. Significant prior stable a pathologic fracture of C4. Dictated by: Neil Mims M.D. on 03/11/2024 at 0:43 Approved by: Neil Mims M.D. on 03/11/2024 at 0:47 MDM Narrative Medical decision making narrative: 68-year-old male with fall from bed, chronic neck pain, no surgical interventions, neurovascular intact at this time. Scalp laceration right forehead region near hairline. CT head, CT cervical spine imaging ordered. Keep NPO for now. CT head noncontrast, shows lytic lesions consistent with reported history multiple myeloma, no acute brain or bony injuries. See radiology report. CT cervical spine, mentioned old appearing C2 fracture, old appearing C4 fracture, no acute fracture identified. Comparison mentioned cervical studies June and November 2023. See radiology report Scalp laceration repair, see procedure note, staple primary skin closure Patient ambulated, took oral fluids. Improved. Wound check advised in 2 days. Staple remover likely in 7 days. Follow up with PCP advised. Discharge Plan Departure Patient Disposition: Home Clinical Impression: Accidental fall from bed, Laceration of scalp, Chronic neck pain Activity Restrictions/Additional Instructions: Fall from bed, linear laceration at scalp line extending posteriorly top of scalp, proximally 2.5 cm, closed with cindi after numbing gel applied. CT head study showed no acute changes. CT cervical spine showed no acute new fractures, but showed old chronic appearing fractures at the level of C2 and C4, per radiology reports. You did not seem to have any neurological problems with your spinal cord or upper extremities at this time. You felt better, able to take oral fluids, and ambulate. Prescriptions: No Action nicotine (polacrilex) 2 mg lozenge 2 mg buccal Q6H PRN (Reason: nicotine cravings) Qty: 72 4RF cyclobenzaprine 10 mg tablet 10 mg PO TID Qty: 60 1RF varenicline 0.5 mg (11)- 1 mg (42) tablets,dose pack 0.5 ea PO DIRECTED Qty: 53 0RF hydrocodone-acetaminophen 10-325 mg tablet 1 tab PO Q8H Qty: 30 0RF ibuprofen 200 mg tablet 400 mg PO Q6H Qty: 60 0RF docusate sodium [Colace] 100 mg capsule 100 mg PO BID Qty: 30 0RF acetaminophen [Tylenol] 325 mg capsule 650 mg PO QID PRN (Reason: pain) Qty: 60 0RF doxycycline hyclate 100 mg capsule 100 mg PO BID Qty: 20 0RF Referrals: Courtney Freed MD [Primary Care Provider] - Stand Alone Forms: Patient Portal/API
[2024-03-11] MEDS: LIDOCAINE/PRILOCAINE 5 GM TOP (03:28)
[2024-03-11] MEDS: BACITRACIN OINT 0.9 GM PCKT 1 APPLIC TOP (04:44)
== END 2024-03-11 05:23 | disposition home or self-care (01) ==
PROVIDERS: Emergency Provider Emergency Medicine; PCP Family Medicine
DX: S01.01XA Laceration without foreign body of scalp, initial encounter (principal); M54.2 Cervicalgia; W06.XXXA Fall from bed, initial encounter
CPT/HCPCS: 12001; 70450; 72125; 99283; 99284

== ENCOUNTER → 2024-06-20 08:03 | Outpatient (ROUT) | payer MEDICARE, MEDICAID, SELFPAY ==
[2023-05-26 13:47] VITALS: BMI 19.5
[2024-06-20 08:52] LABS: Blood Urea Nitrogen 20 mg/dL (9-20); Calcium 9.3 mg/dL (8.4-10.2); Carbon Dioxide 31 mmol/L (22-32); Chloride 100 mmol/L (98-107); Estimated Glomerular Filt Rate > 60 mL/min (>60); Glucose 94 mg/dL (80-110); HEMOLYSIS < 15 (0-50); Potassium 4.1 mmol/L (3.4-5.1); Sodium 138 mmol/L (137-145)
== END ==
PROVIDERS: PCP Family Medicine; Visit Provider Physical Therapy Assistant
DX: I10 Essential (primary) hypertension (principal)
CPT/HCPCS: 36415; 80048

== ENCOUNTER 2024-06-20 23:19 | Emergency (ER) | payer MEDICARE, MEDICAID, SELFPAY ==
[2023-05-26 13:47] VITALS: BMI 19.5
[2024-06-20 23:15] VITALS: BP 184/105; PULSE 97; RESP 26; TEMP 36.6; O2SAT 96
--- NOTE | 2024-06-20 23:18 | EKG_ITS ---
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
[2024-06-20 23:28] VITALS: PULSE 89; O2SAT 96
--- NOTE | 2024-06-20 23:28 | DI.RAD.S_ITS ---
PROCEDURE: XR CHEST 1V INDICATIONS: Shortness of breath TECHNIQUE: One view of the chest was acquired. COMPARISON: None. FINDINGS: Surgical changes and devices: None. Lungs and pleura: Low lung volumes. Left base streaky opacities. No pleural effusions or pneumothorax. Mediastinum: Mediastinal contours appear normal. Heart size is normal. Bones and chest wall: No suspicious bony lesions. Overlying soft tissues appear unremarkable. IMPRESSION: Low lung volumes. Streaky left base opacities favored to represent atelectasis. Approved by: Nargis Dutton M.D.,Ph.D. on 06/21/2024 at 0:19
[2024-06-20 23:30] VITALS: BP 180/104; PULSE 90; O2SAT 95
[2024-06-20 23:48] LABS: Add Manual Diff / Slide Review NO; Basophils Absolute Auto 0 /uL (0-100); Basophils Percent Auto 0.3 % (0-2); Eosinophils Absolute Auto 200 /uL (0-450); Eosinophils Percent Auto 4.2 % (2-4); Hematocrit 34.9 % (41-53); Hemoglobin 11.6 g/dL (13.5-17.5); Lymphocytes Absolute Auto 1600 /uL (1100-4500); Lymphocytes Percent Auto 31.9 % (25-40); Mean Corpuscular HGB Conc 33.3 % (30-36); Mean Corpuscular Hemoglobin 29.3 PG (26-34); Monocytes Absolute Auto 600 /uL (0-900); Monocytes Percent Auto 10.8 % (3-14); Neutrophils Absolute Auto 2700 /uL (1500-7000); Neutrophils Percent Auto 52.8 % (50-75); Platelet Count 103 X10^3/uL (150-400); Red Blood Cell Count 3.96 X10^6/uL (4.5-5.9); Red Cell Distribution Width 18.4 % (11.6-14.8); White Blood Cell Count 5.1 X10^3/uL (4.5-11.0)
[2024-06-20 23:52] LABS: INR 1.1 (0.9-1.3); Prothrombin Time 12.6 SECONDS (9.4-12.5)
[2024-06-20 23:56] LABS: Alanine Aminotransferase 24 IU/L (<50); Albumin 4.5 g/dL (3.5-5.0); Albumin Globulin Ratio 1.7 (1.0-2.8); Alkaline Phosphatase 56 U/L (38-126); Aspartate Aminotransferase 35 IU/L (17-59); BUN Creatinine Ratio 27.4 (6-22); Bilirubin Total 0.6 mg/dL (0.2-1.3); Blood Urea Nitrogen 17 mg/dL (9-20); Calcium 9.7 mg/dL (8.4-10.2); Carbon Dioxide 29 mmol/L (22-32); Chloride 102 mmol/L (98-107); Estimated Glomerular Filt Rate > 60 mL/min (>60); Globulin 2.6 g/dL (1.7-4.1); Glucose 84 mg/dL (80-110); HEMOLYSIS 17 (0-50); Sodium 139 mmol/L (137-145); Total Protein 7.1 g/dL (6.3-8.2)
--- NOTE | 2024-06-20 23:56 | PC.NURSE ---
Pt reports being very anxious and Dilaudid, and please give me some Dilaudid. His respirations are 28-32 with some retracting and abdominal breathing. RT called. RT Pacheco at bedside to assess.
[2024-06-20 23:57] LABS: Lactate (Lactic Acid) 1.9 mmol/L (0.7-2.1)
[2024-06-21] VITALS: PULSE 96; RESP 35
[2024-06-21 00:08] LABS: NT-proBNP (BNP-Adult 18+) 178 pg/mL (<125); Troponin I < 0.012 ng/mL (0.01-0.034)
--- NOTE | 2024-06-21 00:20 | PC.NURSE ---
Pt at bedside and reports to this RN and SENIOR INTERNAL AUDITOR Tabby patient given ativan today for procedure at and states, He get this way when given Ativan. Pt pulling at leads. and patient asks if he can be taken off monitors. Patient taken off monitors at this time. Encouraged not to pull at IV. IV site has been wrapped with coban.
[2024-06-21 00:35] VITALS: PULSE 89; O2SAT 95
[2024-06-21 00:38] VITALS: BP 161/100; PULSE 88; O2SAT 95
--- NOTE | 2024-06-21 00:41 | ED_ITS ---
HPI - General Adult General Chief complaint: Shortness of Breath/Dyspnea Stated complaint: increased agitation and spasms Time Seen by Provider: 06/20/24 23:37 Source: patient and EMS Mode of arrival: EMS Limitations: no limitations History of Present Illness HPI narrative: 69-year-old male history of multiple myeloma with multiple lytic lesions, hypertension, anxiety, chronic pain who presents for increased agitation and spasms. Patient went to [facility] today to have evaluation and repeat MRI of his cervical spine for evaluation for a cervical fracture potential repair states he had lorazepam for his MRI because he was anxious. She states he has had this medication in the past in his had similar type responses when he has had it. She states he gets sort of angry and spasm me and twitchy. He has a history of hypercalcemia in the past as well. No other new medications were given. She states he was tired today but not having any other changes. No fevers no chest pain, no shortness of breath, no nausea or vomiting, no issues with bowel movements or urination. Occasions former smoker, occasional alcohol occasionally uses marijuana no other recreational drugs. Does follow with oncology regularly. Related Data Previous Rx's Medication Instructions Recorded acetaminophen 325 mg capsule 650 mg (2 x 325 mg) PO QID PRN 02/09/23 (Tylenol) pain #60 caps docusate sodium 100 mg capsule 100 mg PO BID #30 caps 02/09/23 (Colace) ibuprofen 200 mg tablet 400 mg (2 x 200 mg) PO Q6H #60 tabs 02/09/23 cyclobenzaprine 10 mg tablet 10 mg PO TID #60 tabs 05/27/23 nicotine (polacrilex) 2 mg buccal 2 mg buccal Q6H PRN nicotine 05/27/23 lozenge cravings #72 ea varenicline tartrate 0.5 mg (11)-1 0.5 ea PO DIRECTED #53 ea 06/14/23 mg (42) tablets in a dose pack hydrocodone 10 mg-acetaminophen 1 tab PO Q8H #30 tabs 06/30/23 325 mg tablet doxycycline hyclate 100 mg capsule 100 mg PO BID #20 caps 01/15/24 Allergies Allergy/AdvReac Type Severity Reaction Status Date / Time codeine Allergy stomach Verified 01/15/24 16:08 cramp Review of Systems Review of Systems ROS Unobtainable: All systems reviewed & are unremarkable except as noted in HPI and below Patient History Medical History Lambda light chain myeloma Elevated serum protein level Vertebral compression fracture Bone pain Tobacco use Loss of height Weight loss Social History household members: spouse Smoking Status: Former smoker Smoking Status: Former smoker tobacco type: cigarettes alcohol intake frequency: a few times a week Exam Narrative Exam Narrative: GENERAL: Alert and oriented, elderly male in mild distress. Follows all commands. HEENT: Head normocephalic, atraumatic, EOMI, pupils reactive, face symmetric, moist mucous membranes NECK: Supple, full range of motion CARDIOVASCULAR: Regular rate and rhythm without murmurs, rubs or gallops. No JVD. No edema bilateral lower extremities. RESPIRATORY: Breath sounds equal bilaterally, no wheezes rales or rhonchi. ABDOMEN: Soft, nontender. Normoactive bowel sounds all 4 quadrants. No guarding or rebound, rigidity, no mass : No CVA tenderness EXTREMITIES: Normal range of motion, no clubbing or edema. Neurovascularly intact NEUROLOGICAL: Cranial nerves II through XII grossly intact. Moving all extremities, patient has occasional twitch but does not have any other inappropriate or atypical movements. SKIN: Warm, dry, no petechiae, no rashes or lesions. Initial Vital Signs Initial Vital Signs: Vital Signs Temperature 97.9 F 06/20/24 23:15 Pulse Rate 97 H 06/20/24 23:15 Respiratory Rate 26 H 06/20/24 23:15 Blood Pressure 184/105 H 06/20/24 23:15 Pulse Oximetry 96 06/20/24 23:15 Oxygen Delivery Method Room Air 06/20/24 23:15 Course Orders Ordered: ED Orders 06/20/24 23:17 EKG-12 Lead Stat 06/20/24 23:28 XR chest 1V Stat Measure peak expiratory flow ONCE RT Consult Eval and Treat NOW 06/20/24 23:37 Complete Blood Count AUTO DIFF Stat Comprehensive Metabolic Panel Stat Lactate (Lactic Acid) Stat NT-proBNP (BNP-Adult 18+) Stat Prothrombin Time INR Stat Troponin I Stat Vital Signs Vital signs: Vital Signs - 8 hr 06/20/24 23:15 06/20/24 23:28 06/20/24 23:30 Temperature 97.9 F Pulse Rate 97 H 89 Respiratory Rate 26 H Blood Pressure 184/105 H 180/104 H Pulse Oximetry 96 96 Oxygen Delivery Method Room Air 06/20/24 23:30 06/21/24 00:00 06/21/24 00:35 Temperature Pulse Rate 90 96 H 89 Respiratory Rate 35 H Blood Pressure Pulse Oximetry 95 95 Oxygen Delivery Method Room Air 06/21/24 00:38 06/21/24 00:38 06/21/24 01:00 Temperature Pulse Rate 88 66 Respiratory Rate 22 Blood Pressure 161/100 H Pulse Oximetry 95 96 Oxygen Delivery Method Room Air Room Air Medical Decision Making Lab Data 06/20/24 23:37 06/20/24 23:37 Labs: Lab Results 06/20/24 Range/Units 23:37 WBC 5.1 (4.5-11.0) X10^3/uL RBC 3.96 L (4.5-5.9) X10^6/uL Hgb 11.6 L (13.5-17.5) g/dL Hct 34.9 L (41-53) % MCV 88.0 (80-100) fL MCH 29.3 (26-34) PG MCHC 33.3 (30-36) % RDW 18.4 H (11.6-14.8) % Plt Count 103 L (150-400) X10^3/uL Neut % (Auto) 52.8 (50-75) % Lymph % (Auto) 31.9 (25-40) % [place] % (Auto) 10.8 (3-14) % Eos % (Auto) 4.2 H (2-4) % Baso % (Auto) 0.3 (0-2) % Neut # (Auto) 2700 (6617-1814) /uL Lymph # (Auto) 1600 (0877-6606) /uL [place] # (Auto) 600 (0-900) /uL Eos # (Auto) 200 (0-450) /uL Baso # (Auto) 0 (0-100) /uL PT 12.6 H (9.4-12.5) SECONDS INR 1.1 (0.9-1.3) Sodium 139 (137-145) mmol/L Potassium 4.0 (3.4-5.1) mmol/L Chloride 102 (98-107) mmol/L Carbon Dioxide 29 (22-32) mmol/L BUN 17 (9-20) mg/dL Creatinine 0.62 L (0.66-1.25) mg/dL Estimated GFR > 60 (>60) mL/min BUN/Creatinine Ratio 27.4 H (6-22) Glucose 84 (80-110) mg/dL Lactate 1.9 (0.7-2.1) mmol/L Calcium 9.7 (8.4-10.2) mg/dL Total Bilirubin 0.6 (0.2-1.3) mg/dL AST 35 (17-59) IU/L ALT 24 (<50) IU/L Alkaline Phosphatase 56 (38-126) U/L Troponin I < 0.012 (0.01-0.034) ng/mL NT-Pro-B Natriuret Pep 178 H (<125) pg/mL Total Protein 7.1 (6.3-8.2) g/dL Albumin 4.5 (3.5-5.0) g/dL Globulin 2.6 (1.7-4.1) g/dL Albumin/Globulin Ratio 1.7 (1.0-2.8) Imaging Data Chest x-ray: Radiologist's Impression: Close Chest X-Ray (Signed) Nargis Dutton - 06/20/[address] (Signed) Neil Mims - 03/11/[address] (Signed) Neil Mims - 03/11/24 Foot X-Ray (Signed) Pacheco Morel - 01/15/[address] (Signed) Augustus Gomez - 07/12/[address] (Signed) Neil Mims - 07/12/23 Thoracic Spine X-Ray (Signed) Mariela Denton - 06/01/23 Lumbar Spine X-Ray (Signed) Bertin,Mariela - 06/01/23 Hip X-Ray (Signed) Lynn Funk - 05/24/23 Scrotum Ultrasound (Signed) Mariela Denton - 02/08/23 Sc[place]um Ultrasound (Signed) Liborio Swain - 01/25/[address] [address] XRay Report Signed Patient: Jose Gomez MR#: [id number] : 1955 Acct:[id number] Age/Sex: 69 / M Date of Service: 06/20/24 Loc: ED Accession Number: [id number] Procedure: XR chest 1V Ordering Provider: Jade Menchaca D.O. PROCEDURE: XR CHEST 1V INDICATIONS: Shortness of breath TECHNIQUE: One view of the chest was acquired. COMPARISON: None. FINDINGS: Surgical changes and devices: None. Lungs and pleura: Low lung volumes. Left base streaky opacities. No pleural effusions or pneumothorax. Mediastinum: Mediastinal contours appear normal. Heart size is normal. Bones and chest wall: No suspicious bony lesions. Overlying soft tissues appear unremarkable. IMPRESSION: Low lung volumes. Streaky left base opacities favored to represent atelectasis. Approved by: Nargis Dutton M.D.,Ph.D. on 06/21/2024 at 0:19 ECG Data Attestation: I personally reviewed and interpreted this ECG as follows: Interpretation: Sinus rhythm rate of 97 MD 178 QRS of 94 QTC of 464, no acute ST changes appreciated. MDM Narrative Medical decision making narrative: EKG shows sinus rhythm nonspecific ST change. Labs show white count of 5.1 hemoglobin 11.6 appears consistent with priors platelets of 103 which are low compared to priors from June of 2023 almost a year ago. No labs available in the interim. INR is 1.1, electrolytes are otherwise appropriate, no hypercalcemia, creatinine 0.62 glucose is 84 lactate 1.9 troponins less than 0.012 with a BNP of 178. Chest x-ray shows low lung volumes streaky left basilar opacities favored to represent atelectasis. 69-year-old male comes in with complaint of behavioral change and being more spasm me or twitchy. notes he has had similar episodes with lorazepam in the past and he had some today to help with the anxiety when he had an MRI [facility]. Patient has a history of hypercalcemia, labs showed no acute change. She notes he is a little improved here. Reviewed findings with patient and , patient was not able to give a urine sample he did not attempt. Discussed straight cath but they defer. feels fairly certain this is related to his medication and has done this before with this medication. She feels comfortable returning patient back to his facility. states he seemed a little bit angry when she arrived here initially but he has been compliant with staff and not aggressive or inappropriate otherwise in his felt appropriate for discharge back to his facility. Discharge Plan Departure Patient Disposition: Home Clinical Impression: Agitation Activity Restrictions/Additional Instructions: After discussion with your family we suspect so if you are behavioral and muscle spasm changes maybe related to your lorazepam. I would recommend stopping this medication to see if it helps with symptoms. We were not successful in getting a urine sample today I would talk with your physician about obtaining this if symptoms are not improving. Please return for fevers, new chest pain or shortness of breath, lightheadedness or passing out, persistent vomiting, changes to mentation or other new or concerning changes. Prescriptions: No Action nicotine (polacrilex) 2 mg lozenge 2 mg buccal Q6H PRN (Reason: nicotine cravings) Qty: 72 4RF cyclobenzaprine 10 mg tablet 10 mg PO TID Qty: 60 1RF varenicline tartrate 0.5 mg (11)- 1 mg (42) tablets,dose pack 0.5 ea PO DIRECTED Qty: 53 0RF hydrocodone-acetaminophen 10-325 mg tablet 1 tab PO Q8H Qty: 30 0RF ibuprofen 200 mg tablet 400 mg PO Q6H Qty: 60 0RF docusate sodium [Colace] 100 mg capsule 100 mg PO BID Qty: 30 0RF acetaminophen [Tylenol] 325 mg capsule 650 mg PO QID PRN (Reason: pain) Qty: 60 0RF doxycycline hyclate 100 mg capsule 100 mg PO BID Qty: 20 0RF Referrals: Courtney Freed MD [Primary Care Provider] - Stand Alone Forms: Patient Portal/API/Survey
[2024-06-21 01:00] VITALS: PULSE 66; RESP 22; O2SAT 96
--- NOTE | 2024-06-21 01:27 | PC.NURSE ---
Update given to [employer] applications development consultant provider MARCEL Kline.
== END 2024-06-21 01:29 | disposition home or self-care (01) ==
PROVIDERS: Emergency Provider Emergency Medicine; PCP Family Medicine
DX: R45.1 Restlessness and agitation (principal); I10 Essential (primary) hypertension; Z87.891 Personal history of nicotine dependence; R06.02 Shortness of breath
CPT/HCPCS: 36415; 71045; 80048; 80053; 83605; 83880; 84484; 85025; 85610; 93005; 99283; 99284